=== PATIENT | female | born 1955 | race Caucasian/White ===

== ENCOUNTER 2021-03-02 08:28 | Emergency (ER) | payer MEDICARE, MEDICAID, SELFPAY ==
--- NOTE | ~2021-03-02 | CT_ITS ---
EXAMINATION: CT BRAIN WITHOUT CONTRAST AND CT ABDOMEN AND PELVIS WITH CONTRAST. CLINICAL INFORMATION: Elevated blood pressure, question stroke. Abdominal distention. COMPARISON: CT abdomen and pelvis 07/04/2019 TECHNIQUE: 5 mm thin axial and reformatted 2 mm thin sagittal and coronal images of brain were obtained. Subsequently axial 5 mm thin and reformatted 3 mm thin sagittal and coronal images of abdomen were obtained following IV 85 mL Omnipaque 350. DLP 1323 FINDINGS: Brain: There is no acute intra-axial, extra-axial bleed, masses or midline shift. There is no acute infarction in evolution. There is no edema. The lateral ventricles are symmetrical in size but enlarged. There is diffuse periventricular hypodensity suggestive of chronic small vessel ischemic changes. Bone windows reveal no calvarial abnormality except for 1 cm subtle lucency along the left frontal bone, likely small vascular ramirez. There is left parietal craniotomy change from previous intervention. The left paranasal sinuses are well-aerated and clear. Bilateral mastoid air cells are well-aerated as well. ABDOMEN AND PELVIS: There is minimal right posterior pleural effusion and pleural thickening with underlying atelectatic changes. The heart size is normal. There multiple collateral vessels seen adjacent and within the gastric fundus. The liver is diffusely attenuated, lobulated contour and slightly decreased in size. There is a 9 mm nodule right hepatic lobe segment 7. No additional lesions seen. There is pneumobilia from previous intervention. There is diffuse ascites. The gallbladder is nondistended with mild mural thickening and radiopaque calculi in the dependent segment. The spleen measures 12.4 cm in length. It appears unremarkable. Bilateral adrenal glands are symmetrical and normal. The pancreas is homogeneous echotexture without enlargement or focal lesion. The abdominal aorta is normal caliber except for mild atherosclerosis. The IVC is normal caliber There are significant prominent collateral vessels seen it in the left upper quadrant, at the splenic hilum and posterior the pancreas consistent varicose veins likely secondary to portal venous hypertension. There is scattered stool and gas seen throughout the colon without any significant distention is diffuse mural thickening involving the ascending colon likely nonspecific colitis no pericolic fat stranding seen. There is diffuse peritoneal base which could be secondary to edema and ascites.. The small bowel loops are normal caliber. The appendix is not visualized. There is diffuse colonic diverticulosis without any mural thickening. There is large amount of ascites and diffuse abdominal wall anasarca. The bladder is distended with diffuse bladder wall thickening. No radiopaque calculi seen. Bone windows reveal no lytic or sclerotic process. There are degenerative disc changes L5 L5-S1 disc level. CT/CT abdomen pelvis w con IMPRESSION: No acute intracranial process seen. There is a left parietal craniotomy change from previous intervention. Minimal right pleural effusion. Cirrhosis with diffuse ascites and portal hypertension resulting in large collateral vessels in the fundus of the stomach, adjacent to the fundus and in the splenic hilum and around the tail of the pancreas. Mild splenomegaly There is diffuse ascites and anasarca. There is diffuse mild mural thickening involving and ascending colon without any pericolic fat stranding. Sigmoid colon diverticulosis without mural thickening 9 mm right hepatic lobe lesion question cyst. Cholecystitis with mild gallbladder wall thickening.
--- NOTE | ~2021-03-02 | XR_ITS ---
EXAMINATION: XR SHOULDER, RIGHT CLINICAL INFORMATION: Pain. COMPARISON: None TECHNIQUE: AP external rotation, Grashey, scapular Y, and axillary views of the right shoulder. FINDINGS: There is loss of glenohumeral joint space with inferior periarticular spurring. AC joint spaces are diffuse. There is no or acute fracture, dislocation or lytic process. The soft tissues are normal. XR/XR shoulder RT min 2V IMPRESSION: Degenerative right shoulder changes. No visible acute fracture or dislocation seen.
[2021-03-02 08:32] VITALS: BP 199/111; BP 200/130; PULSE 77; PULSE 82; RESP 16; TEMP 36.9; O2SAT 96; O2SAT 98; BMI 27.5
--- NOTE | 2021-03-02 09:16 | ED_ITS ---
HPI - General Adult General Chief complaint: General Medical <MITA Simental Last Filed: 03/02/21 16:25> Stated complaint: STOMACH EDEMA <MITA Simental Last Filed: 03/02/21 16:25> Time Seen by Provider: 03/02/21 08:44 <MITA Simental Last Filed: 03/02/21 16:25> Source: patient <MITA Simental Last Filed: 03/02/21 16:25> Mode of arrival: ambulatory <MITA Simental Last Filed: 03/02/21 16:25> Limitations: no limitations <MITA Simental Last Filed: 03/02/21 16:25> History of Present Illness HPI narrative: Patient presents to ED for abdominal swelling for 1 week. Patient denies any fever, chills, abdominal pain, shortness of breath, flank pain, or back pain. patient states suprapubic pain. Patient states past medical history of u mbilical hernia and alcoholic cirrhosis. Patient states no PCP or structural rigger for follow up. <MITA Simental Last Filed: 03/02/21 16:25> Related Data Home medications: Previous Rx's Medication Instructions Recorded cefuroxime axetil 250 mg PO Q12H #14 tab 03/02/21 naproxen 500 mg PO BID PRN #20 tab 03/02/21 spironolactone [Aldactone] 50 mg PO DAILY #18 tab 03/02/21 <MITA Simental Last Filed: 03/02/21 16:25> Allergies/adverse reactions: Allergies Allergy/AdvReac Type Severity Reaction Status Date / Time lithium [LITHIUM] Allergy Intermediate UNKNOWN Unverified 07/02/20 15:21 acetaminophen [From TYLENOL] Allergy Unknown UNABLE TO Unverified 07/02/20 15:21 TAKE DUE TO LIVER furosemide [From LASIX] Allergy Unknown UNKOWN Unverified 07/02/20 15:21 pioglitazone [From ACTOS] Allergy Unknown HEAD Unverified 07/02/20 15:21 PRESSURE, TACHYCARDIA, racing heart <MITA Simental Last Filed: 03/02/21 16:25> Review of Systems 2 Review of Systems: Yes all other systems are reviewed and are negative <MITA Simental - Last Filed: 03/02/21 16:25> Constitutional: Constitutional: Reports as per HPI and Reports no additional constitutional complaints <MITA Simental - Last Filed: 03/02/21 16:25> Eyes: Eyes: Reports as per HPI and Reports no additional eye complaints <MITA Simental Last Filed: 03/02/21 16:25> ENT: Reports system reviewed and no additional complaints, except as documented and Reports as per HPI <MITA Simental - Last Filed: 03/02/21 16:25> Cardiovascular: Cardiovascular: Reports as per HPI and Reports no additional cardiovascular complaints <MITA Simental - Last Filed: 03/02/21 16:25> Respiratory: Respiratory: Reports as per HPI and Reports no additional respiratory complaints <MITA Simental Last Filed: 03/02/21 16:25> Gastrointestinal: Gastrointestinal: Reports as per HPI and Reports no additional gastrointestinal complaints <MTIA Simental Last Filed: 03/02 16:25> Comments: Abdominal distension <MITA Simental Last Filed: 03/02/21 16:25> Genitourinary: Genitourinary: Reports no additional female genitourinary complaints and Reports as per HPI <MITA Simental Last Filed: 03/02/21 16:25> Musculoskeletal: Musculoskeletal: Reports no additional musculoskeletal complaints, Reports as per HPI and Reports arthralgias (Right shoulder pain) <MITA Simental - Last Filed: 03/02/21 16:25> Neurologic: Reports system reviewed and no additional complaints, except as documented and Reports as per HPI <IMTA Simental - Last Filed: 03/02/21 16:25> Psychiatric: Psychiatric: Reports no additional psychiatric complaints and Reports as per HPI <MITA Simental Last Filed: 03/02/21 16:25> PMFSH Past Medical History Medical History: Medical History (Updated 03/02/21 @ 14:11 by MITA Simental) Cirrhosis <MITA Simental Last Filed: 03/02/21 16:25> Surgical History: Surgical History (Updated 03/02/21 @ 08:37 by Vianca Alfonso RN) H/O brain surgery <MITA Simental - Last Filed: 03/02/21 16:25> Social History Social History: Social History Advance Directives: No Advance Directives Information Provided: No <MITA Simental - Last Filed: 03/02/21 16:25> Physical Exam Vital Signs: Vital Signs: Last Vital Signs Temp 98.4 F 03/02/21 08:32 Pulse 62 03/02/21 14:23 Resp 18 03/02/21 14:23 BP 165/87 H 03/02/21 14:23 Pulse Ox 97 03/02/21 14:23 Body Mass Index 27.5 <MITA Simental - Last Filed: 03/02/21 16:25> Vital Signs: Last Vital Signs Temp 98.4 F 03/02/21 08:32 Pulse 62 03/02/21 14:23 Resp 18 03/02/21 14:23 BP 165/87 H 03/02/21 14:23 Pulse Ox 97 03/02/21 14:23 Body Mass Index 27.5 <Shamir Lafleur MD - Last Filed: 03/02/21 12:36> Const: General: cooperative, healthy appearing, comfortable, no acute distress, well developed, alert and awake <MITA Simental - Last Filed: 03/02/21 16:25> Orientation/consciousness: patient oriented x3 <MITA Simental - Last Filed: 03/02/21 16:25> HENMT: Head: Yes normal to inspection, Yes No palpable skull fracture present, Yes normocephalic and Yes atraumatic <MITA Simental Last Filed: 03/02/21 16:25> Eyes: General: appearance normal, both eyes and all related structures <MITA Simental - Last Filed: 03/02/21 16:25> Neck: Neck: Yes normal visual inspection, Yes full ROM, Yes no lymphadenopathy, Yes no meningeal signs, Yes trachea midline, Yes supple and No tender <MITA Simental - Last Filed: 03/02/21 16:25> Chest: Chest palpation & inspection: normal inspection of the chest and normal palpation of entire chest wall <MITA Simental Last Filed: 03/02/21 16:25> Resp: Effort & Inspection: normal respiratory effort and able to speak in complete sentences <MITA Simental Last Filed: 03/02/21 16:25> Auscultation: clear to auscultation bilaterally <MITA Simental Last Filed: 03/02/21 16:25> Cardio: Jugular venous distension: no JVD <MITA Simental Last Filed: 03/02/21 16:25> Heart sounds: S1 normal heart sound present and S2 normal heart sound present <MITA Simental Last Filed: 03/02/21 16:25> GI: Other: Positive for large hiatal hernia that is reducible. Abdomen is not firm and negative for venous Telengtasia <MITA Simental Last Filed: 03/02/21 16:25> Inspection: Yes normal to inspection and Yes distended <MITA Simental Last Filed: 03/02/21 16:25> Palpation (GI): Soft to palpation, not firm, nontender, no guarding and not rigid <MITA Simental Last Filed: 03/02/21 16:25> : General: No CVA tenderness and Yes no CVA tenderness <MITA Simental Christine Last Filed: 03/02/21 16:25> Back/Spine/Pelvis: Back: no CVA tenderness, No CVA tenderness and No back tenderness <Juan Manuel Jose, PA Last Filed: 03/02/21 16:25> Skin: General skin exam: no rashes or lesions noted and elasticity normal <MITA Simental Last Filed: 03/02/21 16:25> Neuro: General: patient oriented x3, no meningeal signs and CN's II-XI intact bilaterally <MITA Simental Christine Last Filed: 03/02/21 16:25> Cranial nerves: Yes CN's II-XII intact bilaterally <MITA Simental Last Filed: 03/02/21 16:25> Extrem: Other: Right upper extremity.: Positive for right shoulder tenderness. Negative for shoulder deformity. Mild per x-ray negative for swelling or redness of coolness. Vascular/motor/neuro exam of right upper extremity intact <MITA Simental - Last Filed: 03/02/21 16:25> General: Yes normal to inspection and Yes full ROM <MITA Simental Last Filed: 03/02/21 16:25> Psych: Appearance: grossly normal, well kempt and not disheveled <MITA Simental Last Filed: 03/02/21 16:25> Course Course Course Narrative: Bedside ultrasound was done at bedside and only showed ascitic fluid on right upper/lower quadrant. Patient is not having any abdominal pain or shortness of breath. Not suspecting SBP. Paracentesis not likely indicated. Will speak with attending. Patient is hypertensive. Will do labs EKG and troponin. Patient has no PCP. Unknown why she is allergic to Lasix <MITA Simental Last Filed: 03/02/21 16:25> I agree with history and physical. My exam is soft abdomen some ascites, non tender. No concern for SBP, no need for emergent tap. Will start aldactone and dc home <Shamir Lafleur MD - Last Filed: 03/02/21 12:36> Reevaluation(s) Reevaluation #1: Patient sent for head CT due to elevated blood pressure make sure there is no bleeding or stroke although very unlikely. Patient neuro exam is intact. Patient denies any dizziness or headache. Patient was sent for abdominal CT scan to evaluate for small bowel obstruction. Patient denies any abdominal pain. Patient states mostly shoulder pain. <MITA Simental Last Filed: 03/02/21 16:25> Reevaluation #2: Abdominal CT scan shows large amount of ascites in the right side. Negative for elevated white blood cell count. Patient afebrile non tachy. Patient requesting more pain meds for shoulder <MITA Simental Last Filed: 03/02/21 16:25> Reevaluation #3: Patient UA positive for UTI. Will discharge were the Aldactone and Macrobid. Not suspecting SBP. Patient not having shortness of breath. Paracentesis not indicated. <MITA Simental Last Filed: 03/02/21 16:25> Additional Reevaluation(s): Second troponin came back negative. Shoulder shows degenerate arthritis <MITA Simental Last Filed: 03/02/21 16:25> Medical Decision Making MDM Narrative Medical decision making narrative: Hypertension. UTI. Ascites <MITA Simental - Last Filed: 03/02/21 16:25> Lab Data Result diagrams: : 03/02/21 10:07 03/02/21 10:07 <MITA Simental - Last Filed: 03/02/21 16:25> Labs: Lab Results 03/02/21 03/02/21 03/02/21 Range/Units 10:07 10:07 10:07 WBC 3.2 L (4.8-10.8) X10*3/uL RBC 4.29 (4.20-5.50) X10*6/uL Hgb 13.1 (12.0-16.0) g/dl Hct 38.6 (37-47) % MCV 90.0 (80-98) fL MCH 30.5 (27.0-33.0) pg MCHC 33.9 (31.0-35.0) g/dl RDW 14.6 (11.0-16.0) % Plt Count 84 L (160-400) X10*3/uL MPV 10.6 (9.4-12.3) fL Immature Gran % (Auto) 0.3 (0.0-0.4) % Neut % (Auto) 59.0 (45-73) % Lymph % (Auto) 19.2 L (20-40) % [place] % (Auto) 18.6 H (2-11) % Eos % (Auto) 1.3 (0-4) % Baso % (Auto) 1.6 (0-2) % Lymph # (Auto) 0.6 L (1.2-4.9) X10*3/uL [place] # (Auto) 0.6 (0.1-1.2) X10*3/uL Eos # (Auto) 0.0 (0.0-0.4) X10*3/uL Baso # (Auto) 0.1 (0.0-0.2) X10*3/uL Abs Immat Gran (auto) 0.01 (0.00-0.03) X10*3/uL Absolute Neuts (auto) 1.9 L (2.0-8.3) X10*3/uL Absolute Nucleated RBC 0.000 (0.0-0.012) X10*3/uL Nucleated RBC % (auto) 0.0 (0.0-0.2) /100WBC Smear Tech's Comments VERIFIED PT 14.9 H (10.8-13.0) SEC INR 1.3 H (0.9-1.1) APTT 35.3 (24.1-38.0) SEC Sodium 137 (135-145) mmol/L Potassium 3.6 (3.3-5.1) mmol/L Chloride 105 (96-108) mmol/L Carbon Dioxide 25 (22-29) mmol/L Anion Gap 11 L (12-20) BUN 12 (9-16) mg/dL Creatinine 0.84 (0.5-1.4) mg/dL Estim Creat Clear Calc 57.2 Estimated GFR > 60 Random Glucose 86 (60-115) mg/dL Calcium 7.9 L (8.4-10.2) mg/dL Total Bilirubin 2.8 H (0.0-1.0) mg/dL Direct Bilirubin 1.8 H (0.0-0.5) mg/dL AST 104 H (5-31) U/L ALT 44 H (0-31) U/L Alkaline Phosphatase 100 (39-117) U/L Troponin I High Sens (<3.5-17.0) ng/L Total Protein 5.0 L (6.5-8.0) g/dL Albumin 2.1 L (3.5-5.0) g/dL Lipase 35 (8-78) U/L Urine Color Urine Appearance Urine pH (5.0-8.0) Ur Specific Almond (1.005-1.025) Urine Protein (NEG-TRACE) MG/DL Urine Glucose (UA) (NEG) MG/DL Urine Ketones (NEG) MG/DL Urine Blood (NEG) Urine Nitrite (NEG) Ur Leukocyte Esterase (NEG) Urine RBC (0) /HPF Urine WBC (0-4) /HPF Ur Squamous Epith Cells /LPF Amorphous Sediment /LPF Urine Bacteria /LPF Urine Mucus /LPF 03/02/21 03/02/21 03/02/21 Range/Units 10:07 12:19 13:18 WBC (4.8-10.8) X10*3/uL RBC (4.20-5.50) X10*6/uL Hgb (12.0-16.0) g/dl Hct (37-47) % MCV (80-98) fL MCH (27.0-33.0) pg MCHC (31.0-35.0) g/dl RDW (11.0-16.0) % Plt Count (160-400) X10*3/uL MPV (9.4-12.3) fL Immature Gran % (Auto) (0.0-0.4) % Neut % (Auto) (45-73) % Lymph % (Auto) (20-40) % [place] % (Auto) (2-11) % Eos % (Auto) (0-4) % Baso % (Auto) (0-2) % Lymph # (Auto) (1.2-4.9) X10*3/uL [place] # (Auto) (0.1-1.2) X10*3/uL Eos # (Auto) (0.0-0.4) X10*3/uL Baso # (Auto) (0.0-0.2) X10*3/uL Abs Immat Gran (auto) (0.00-0.03) X10*3/uL Absolute Neuts (auto) (2.0-8.3) X10*3/uL Absolute Nucleated RBC (0.0-0.012) X10*3/uL Nucleated RBC % (auto) (0.0-0.2) /100WBC Smear Tech's Comments PT (10.8-13.0) SEC INR (0.9-1.1) APTT (24.1-38.0) SEC Sodium (135-145) mmol/L Potassium (3.3-5.1) mmol/L Chloride (96-108) mmol/L Carbon Dioxide (22-29) mmol/L Anion Gap (12-20) BUN (9-16) mg/dL Creatinine (0.5-1.4) mg/dL Estim Creat Clear Calc Estimated GFR Random Glucose (60-115) mg/dL Calcium (8.4-10.2) mg/dL Total Bilirubin (0.0-1.0) mg/dL Direct Bilirubin (0.0-0.5) mg/dL AST (5-31) U/L ALT (0-31) U/L Alkaline Phosphatase (39-117) U/L Troponin I High Sens 13.8 16.6 (<3.5-17.0) ng/L Total Protein (6.5-8.0) g/dL Albumin (3.5-5.0) g/dL Lipase (8-78) U/L Urine Color DARK YELLOW Urine Appearance HAZY Urine pH 7.5 (5.0-8.0) Ur Specific Almond 1.020 (1.005-1.025) Urine Protein 2+ H (NEG-TRACE) MG/DL Urine Glucose (UA) NEG (NEG) MG/DL Urine Ketones NEG (NEG) MG/DL Urine Blood TRACE (NEG) Urine Nitrite POS H (NEG) Ur Leukocyte Esterase TRACE H (NEG) Urine RBC 1-4 (0) /HPF Urine WBC 30-49 H (0-4) /HPF Ur Squamous Epith Cells 2+ /LPF Amorphous Sediment 2+ /LPF Urine Bacteria 2+ /LPF Urine Mucus 2+ /LPF <MITA Simental - Last Filed: 03/02/21 16:25> Lab Results 03/02/21 03/02/21 03/02/21 Range/Units 10:07 10:07 10:07 WBC 3.2 L (4.8-10.8) X10*3/uL RBC 4.29 (4.20-5.50) X10*6/uL Hgb 13.1 (12.0-16.0) g/dl Hct 38.6 (37-47) % MCV 90.0 (80-98) fL MCH 30.5 (27.0-33.0) pg MCHC 33.9 (31.0-35.0) g/dl RDW 14.6 (11.0-16.0) % Plt Count 84 L (160-400) X10*3/uL MPV 10.6 (9.4-12.3) fL Immature Gran % (Auto) 0.3 (0.0-0.4) % Neut % (Auto) 59.0 (45-73) % Lymph % (Auto) 19.2 L (20-40) % [place] % (Auto) 18.6 H (2-11) % Eos % (Auto) 1.3 (0-4) % Baso % (Auto) 1.6 (0-2) % Lymph # (Auto) 0.6 L (1.2-4.9) X10*3/uL [place] # (Auto) 0.6 (0.1-1.2) X10*3/uL Eos # (Auto) 0.0 (0.0-0.4) X10*3/uL Baso # (Auto) 0.1 (0.0-0.2) X10*3/uL Abs Immat Gran (auto) 0.01 (0.00-0.03) X10*3/uL Absolute Neuts (auto) 1.9 L (2.0-8.3) X10*3/uL Absolute Nucleated RBC 0.000 (0.0-0.012) X10*3/uL Nucleated RBC % (auto) 0.0 (0.0-0.2) /100WBC Smear Tech's Comments VERIFIED PT 14.9 H (10.8-13.0) SEC INR 1.3 H (0.9-1.1) APTT 35.3 (24.1-38.0) SEC Sodium 137 (135-145) mmol/L Potassium 3.6 (3.3-5.1) mmol/L Chloride 105 (96-108) mmol/L Carbon Dioxide 25 (22-29) mmol/L Anion Gap 11 L (12-20) BUN 12 (9-16) mg/dL Creatinine 0.84 (0.5-1.4) mg/dL Estim Creat Clear Calc 57.2 Estimated GFR > 60 Random Glucose 86 (60-115) mg/dL Calcium 7.9 L (8.4-10.2) mg/dL Total Bilirubin 2.8 H (0.0-1.0) mg/dL Direct Bilirubin 1.8 H (0.0-0.5) mg/dL AST 104 H (5-31) U/L ALT 44 H (0-31) U/L Alkaline Phosphatase 100 (39-117) U/L Troponin I High Sens (<3.5-17.0) ng/L Total Protein 5.0 L (6.5-8.0) g/dL Albumin 2.1 L (3.5-5.0) g/dL Lipase 35 (8-78) U/L Urine Color Urine Appearance Urine pH (5.0-8.0) Ur Specific Almond (1.005-1.025) Urine Protein (NEG-TRACE) MG/DL Urine Glucose (UA) (NEG) MG/DL Urine Ketones (NEG) MG/DL Urine Blood (NEG) Urine Nitrite (NEG) Ur Leukocyte Esterase (NEG) Urine RBC (0) /HPF Urine WBC (0-4) /HPF Ur Squamous Epith Cells /LPF Amorphous Sediment /LPF Urine Bacteria /LPF Urine Mucus /LPF 03/02/21 03/02/21 03/02/21 Range/Units 10:07 12:19 13:18 WBC (4.8-10.8) X10*3/uL RBC (4.20-5.50) X10*6/uL Hgb (12.0-16.0) g/dl Hct (37-47) % MCV (80-98) fL MCH (27.0-33.0) pg MCHC (31.0-35.0) g/dl RDW (11.0-16.0) % Plt Count (160-400) X10*3/uL MPV (9.4-12.3) fL Immature Gran % (Auto) (0.0-0.4) % Neut % (Auto) (45-73) % Lymph % (Auto) (20-40) % [place] % (Auto) (2-11) % Eos % (Auto) (0-4) % Baso % (Auto) (0-2) % Lymph # (Auto) (1.2-4.9) X10*3/uL [place] # (Auto) (0.1-1.2) X10*3/uL Eos # (Auto) (0.0-0.4) X10*3/uL Baso # (Auto) (0.0-0.2) X10*3/uL Abs Immat Gran (auto) (0.00-0.03) X10*3/uL Absolute Neuts (auto) (2.0-8.3) X10*3/uL Absolute Nucleated RBC (0.0-0.012) X10*3/uL Nucleated RBC % (auto) (0.0-0.2) /100WBC Smear Tech's Comments PT (10.8-13.0) SEC INR (0.9-1.1) APTT (24.1-38.0) SEC Sodium (135-145) mmol/L Potassium (3.3-5.1) mmol/L Chloride (96-108) mmol/L Carbon Dioxide (22-29) mmol/L Anion Gap (12-20) BUN (9-16) mg/dL Creatinine (0.5-1.4) mg/dL Estim Creat Clear Calc Estimated GFR Random Glucose (60-115) mg/dL Calcium (8.4-10.2) mg/dL Total Bilirubin (0.0-1.0) mg/dL Direct Bilirubin (0.0-0.5) mg/dL AST (5-31) U/L ALT (0-31) U/L Alkaline Phosphatase (39-117) U/L Troponin I High Sens 13.8 16.6 (<3.5-17.0) ng/L Total Protein (6.5-8.0) g/dL Albumin (3.5-5.0) g/dL Lipase (8-78) U/L Urine Color DARK YELLOW Urine Appearance HAZY Urine pH 7.5 (5.0-8.0) Ur Specific [place] 1.020 (1.005-1.025) Urine Protein 2+ H (NEG-TRACE) MG/DL Urine Glucose (UA) NEG (NEG) MG/DL Urine Ketones NEG (NEG) MG/DL Urine Blood TRACE (NEG) Urine Nitrite POS H (NEG) Ur Leukocyte Esterase TRACE H (NEG) Urine RBC 1-4 (0) /HPF Urine WBC 30-49 H (0-4) /HPF Ur Squamous Epith Cells 2+ /LPF Amorphous Sediment 2+ /LPF Urine Bacteria 2+ /LPF Urine Mucus 2+ /LPF <Shamir Lafleur MD - Last Filed: 03/02/21 12:36> ECG Data Interpretation: Normal sinus rhythm. Ventricular rate 72. Peer interval 190. QRS 94. QTC 473. Negative STEMI <MITA Simental - Last Filed: 03/02/21 16:25> Discharge Plan Discharge Clinical Impression: Abdominal ascites, Acute UTI <MITA Simental - Last Filed: 03/02/21 16:25> Patient Disposition: Home, Self-Care <MITA Simental - Last Filed: 03/02/21 16:25> Instructions: Urinary Tract Infection in Women (ED), Ascites (ED) <MITA Simental - Last Filed: 03/02/21 16:25> Additional Instructions: Return to the ED immediately for abdominal pain, fever, chills, dysuria, swelling of legs, chest pain, shortness of breath, headache, or any other concerning symptoms. <MITA Simental - Last Filed: 03/02/21 16:25> Prescriptions: New spironolactone [Aldactone] 50 mg tablet 50 mg PO DAILY Qty: 18 RF: 0 naproxen 500 mg tablet 500 mg PO BID PRN (Reason: pain) Qty: 20 RF: 0 cefuroxime axetil 250 mg tablet 250 mg PO Q12H Qty: 14 RF: 0 <MITA Simental Last Filed: 03/02/21 16:25> Referrals: Kumar Vega MD [Physician] - 2 days (Alcoholic cirrhosis, HTN, Hep C, CHF) Kurt Murrell [Physician] - 2 days (ALcoholic cirrohosis. ) <MITA Simental - Last Filed: 03/02/21 16:25> Interventions: ED Discharge Assessment Last Done: 03/02/21 14:49 <MITA Simental - Last Filed: 03/02/21 16:25> Discharge Date/Time: 03/02/21 15:10 <MITA Simental - Last Filed: 03/02/21 16:25> Print Language: Portuguese <MITA Simental - Last Filed: 03/02/21 16:25>
--- NOTE | 2021-03-02 09:17 | ECG_ITS ---
Test Reason : SOB Blood Pressure : / mmHG Vent. Rate : 072 BPM Atrial Rate : 072 BPM P-R Int : 190 ms QRS Dur : 094 ms QT Int : 432 ms P-R-T Axes : 054 -07 -17 degrees QTc Int : 473 ms Normal sinus rhythm Nonspecific ST abnormality Abnormal ECG When compared with ECG of 01-DEC-2019 08:11, QRS axis Shifted left Referred By: Juan Manuel Garcia Electronically Signed By:MERE MEDRANO MD
[2021-03-02 10:03] VITALS: BP 183/90
[2021-03-02] MEDS: Ketorolac Tromethamine 30 MG/ML VIAL IVPUSH (10:11)
[2021-03-02 10:12] LABS: Basophils Absolute Auto 0.1 X10*3/uL (0.0-0.2); Basophils Percent Auto 1.6 % (0-2); Eosinophils Percent Auto 1.3 % (0-4); Hematocrit 38.6 % (37-47); Hemoglobin 13.1 g/dl (12.0-16.0); Imm Gran Abs Auto 0.01 X10*3/uL (0.00-0.03); Imm Gran Pct Auto 0.3 % (0.0-0.4); Lymphocytes Absolute Auto 0.6 X10*3/uL (1.2-4.9); Lymphocytes Percent Auto 19.2 % (20-40); MANUAL DIFF FLAG SCAN; Mean Corpuscular HGB Conc 33.9 g/dl (31.0-35.0); Mean Corpuscular Hemoglobin 30.5 pg (27.0-33.0); Mean Platelet Volume 10.6 fL (9.4-12.3); Monocytes Absolute Auto 0.6 X10*3/uL (0.1-1.2); Monocytes Percent Auto 18.6 % (2-11); Neutrophils Absolute Auto 1.9 X10*3/uL (2.0-8.3); Red Blood Count 4.29 X10*6/uL (4.20-5.50); Red Cell Distribution Width 14.6 % (11.0-16.0); SCAN SMEAR FLAG 1; White Blood Count 3.2 X10*3/uL (4.8-10.8)
[2021-03-02 10:13] LABS: Platelet Count 84 X10*3/uL (160-400)
[2021-03-02 10:20] LABS: INTERNATIONAL NORM RATIO 1.3 (0.9-1.1); Prothrombin Time 14.9 SEC (10.8-13.0)
[2021-03-02 10:23] LABS: Partial Thromboplastin Time 35.3 SEC (24.1-38.0)
[2021-03-02 10:24] VITALS: BP 195/102; PULSE 75
[2021-03-02] MEDS: cloNIDine HCL 0.2 MG TABLET PO (10:24)
[2021-03-02 10:40] LABS: SLIDE REVIEW VERIFIED
[2021-03-02 10:45] LABS: Alanine Aminotransferase 44 U/L (0-31); Albumin Level 2.1 g/dL (3.5-5.0); Alkaline Phosphatase 100 U/L (39-117); Anion Gap 11 (12-20); Aspartate Amino Transferase 104 U/L (5-31); Bilirubin Direct 1.8 mg/dL (0.0-0.5); Bilirubin Total 2.8 mg/dL (0.0-1.0); Blood Urea Nitrogen 12 mg/dL (9-16); Calcium 7.9 mg/dL (8.4-10.2); Carbon Dioxide 25 mmol/L (22-29); Chloride 105 mmol/L (96-108); Creatinine Clr Calc Pharmacy 57.2; Estimated Glomerular Filt Rate > 60; Glucose Random 86 mg/dL (60-115); Lipase 35 U/L (8-78); Potassium 3.6 mmol/L (3.3-5.1); Sodium 137 mmol/L (135-145)
[2021-03-02 10:46] LABS: Troponin-I High Sensitivity 13.8 ng/L (<3.5-17.0)
[2021-03-02] MEDS: iohexoL 350 MG/ML 100 ML INFUS..BTL IV (11:46)
[2021-03-02 12:19] VITALS: BP 168/91
[2021-03-02] MEDS: oxyCODONE HCl Immed Release 5 MG TABLET PO (12:23)
[2021-03-02 12:32] LABS: Glucose Urine UA NEG (NEG); Leukocyte Esterase Urine TRACE (NEG); Nitrite Urine POS (NEG); PH 7.5 (5.0-8.0); UACC Culture Trigger YES; Urine Blood TRACE (NEG); Urine Ketones NEG (NEG); Urine Protein 2+ MG/DL (NEG-TRACE)
[2021-03-02 12:33] LABS: Appearance Urine HAZY; Color Urine DARK YELLOW
[2021-03-02 12:45] LABS: Amorphous Sediment Urine 2+ /LPF; Bacteria Urine 2+ /LPF; Mucus Urine 2+ /LPF; Squamous Epithelial Cell Urine 2+ /LPF; WBC Urine 30-49 /HPF (0-4)
[2021-03-02 13:51] LABS: Troponin-I High Sensitivity 16.6 ng/L (<3.5-17.0)
[2021-03-02 14:23] VITALS: BP 165/87; PULSE 62; RESP 18; O2SAT 97
== END 2021-03-02 15:10 | disposition home or self-care (01) ==
PROVIDERS: Physician Assistant; Emergency Provider Emergency Medicine
DX: R18.8 Other ascites (principal); N39.0 Urinary tract infection, site not specified; M25.511 Pain in right shoulder; M19.011 Primary osteoarthritis, right shoulder; K44.9 Diaphragmatic hernia without obstruction or gangrene; K70.30 Alcoholic cirrhosis of liver without ascites; I10 Essential (primary) hypertension
CPT/HCPCS: 36415; 70450; 73030; 74177; 80053; 80076; 81001; 81003; 82248; 83690; 84484; 85025; 85610; 85730; 87086; 93005; 96374; 99284; J1885; Q9967

== ENCOUNTER 2021-05-20 18:14 | Emergency (ER) | payer MEDICARE, MEDICAID, SELFPAY ==
--- NOTE | ~2021-05-20 | CT_ITS ---
EXAMINATION: CT HEAD WITHOUT CONTRAST CLINICAL INFORMATION: Fall. EtOH. COMPARISON: Head CT March 02, 2021 TECHNIQUE: Contiguous axial imaging was performed from the skull base to vertex without intravenous administration of contrast. This CT examination was performed using dose optimization techniques as appropriate, variously including the following: *Automated exposure control *Adjustment of mA and/or kV according to patient size (this includes techniques or standardized protocols for targeted exams where dose is matched to indication/reason for exam; i.e. extremities or head) *Use of iterative reconstruction technique DLP: 674 mGy-cm FINDINGS: There is no evidence of acute intracranial hemorrhage or territorial infarction. No abnormal mass effect or midline shift is appreciated. Mejia-white differentiation is well preserved. No extra-axial fluid collections. The ventricular system and cortical sulci are prominent, consistent with age-appropriate volume loss. There are areas of low density in the periventricular and subcortical white matter, most consistent with sequelae of microvascular ischemic change. No acute osseous fracture. Surgical changes from prior left parietal craniotomy. There are calcifications of the cavernous internal carotid arteries. The visualized paranasal sinuses and mastoid air cells are well aerated. CT/CT head/brain wo con IMPRESSION: Chronic microvascular ischemic changes with no CT evidence of acute intracranial abnormality.
[2021-05-20 18:19] VITALS: BP 132/65; BP 163/84; PULSE 64; PULSE 65; RESP 18; TEMP 36.4; O2SAT 94; BMI 29.0
--- NOTE | 2021-05-20 19:51 | ED_ITS ---
HPI - Alcohol General Chief Complaint: ETOH/Substance Use Stated Complaint: ETOH Time Seen by Provider: 05/20/21 19:22 Source: EMS Mode of arrival: EMS History of Present Illness HPI narrative: Patient is brought to the emergency room for alcohol intoxication. Patient reports initially that she fell, then she said that she did not fall. Patient states she has no pain anywhere. Patient is intoxicated, states she feels well but feels sleepy. Patient denies loss of consciousness MD complaint: alcohol intoxication Related Data Previous Rx's Medication Instructions Recorded cefuroxime axetil 250 mg tablet 250 mg PO Q12H #14 tab 03/02/21 naproxen 500 mg tablet 500 mg PO BID PRN #20 tab 03/02/21 spironolactone 50 mg tablet 50 mg PO DAILY #18 tab 03/02/21 (Aldactone) Allergies Allergy/AdvReac Type Severity Reaction Status Date / Time lithium [LITHIUM] Allergy Intermediate UNKNOWN Unverified 07/02/20 15:21 acetaminophen [From TYLENOL] Allergy Unknown UNABLE TO Unverified 07/02/20 15:21 TAKE DUE TO LIVER furosemide [From LASIX] Allergy Unknown UNKOWN Unverified 07/02/20 15:21 pioglitazone [From ACTOS] Allergy Unknown HEAD Unverified 07/02/20 15:21 PRESSURE, TACHYCARDIA, racing heart Review of Systems Review of Systems: Constitutional : No Weight loss, No Fever, No Chills, No Night Sweats, No Fatigue, No Malaise ENT/Mouth : No Hearing loss, No Ear Pain, No Nasal Congestion, No Sinus Pain, No Hoarseness, No sore throat, No Rhinorrhea, No Swallowing Difficulty Eyes: No Eye Pain, No Swelling, No Redness, No Foreign Body, No Discharge, No Vision Changes Cardiovascular : No Chest Pain, No SOB, No Dyspnea on Exertion, No Orthopnea, No Edema, No Palpitations Respiratory : No Cough, No Sputum, No Wheezing, No Smoke Exposure, No Dyspnea Gastrointestinal : No Nausea, No Vomiting, No Diarrhea, No Constipation, No abdominal Pain, No Hematochezia, No Melena Genitourinary : no irregular bleeding, No Dysuria, No Urinary Frequency, No Hematuria, No Urinary Incontinence, No Urgency, No Flank Pain, No Urinary Flow Changes, No Hesitancy Musculoskeletal : No joint pain, No Myalgias, No Joint Swelling Skin : No Skin Lesions, No rash Neuro : No Weakness, No Numbness, No Paresthesias, denies loss of consciousness, no headache Psych : No Anxiety/Panic, No Depression, No SI/HI/AH/VH, No Social Issues, Heme/Lymph: No Bruising, No Bleeding,No Lymphadenopathy Endocrine : No Polyuria, No Polydipsia, No Temperature Intolerance [facility] Past Medical History Medical History Cirrhosis Surgical History H/O brain surgery Social History Social History Alcohol intake: current Alcohol intake frequency: 3 or more drinks per day Patient Tobacco Use Status: Current everyday Tobacco user Smoked in Last 30 Days: Yes Use of substances other than those prescribed or required for medical reasons: Refusing to respond Advance Directives: No Advance Directives Information Provided: No Physical Exam Vital Signs: Vital Signs: Last Vital Signs Temp 97.6 F 05/20/21 22:47 Pulse 69 05/20/21 22:47 Resp 18 05/20/21 22:47 BP 145/76 H 05/20/21 22:47 Pulse Ox 96 05/20/21 22:47 Body Mass Index 29.0 Const: Other: Appearance: Alert. Oriented X3. No acute distress. Somnolent but easily arousable, is intoxicated, calm and cooperative Eyes: Pupils equal, round and reactive to light. ENT: Pharynx normal. Neck: Normal inspection. Neck supple. No lymph nodes noted. No crepitus CVS: Normal heart rate and rhythm. Pulses normal. Normal S1 and S2 Respiratory: No respiratory distress. Breath sounds normal. No Wheezing. No rales Abdomen: Soft, slightly distended but not painful on deep palpation Skin: Skin warm and dry. Normal skin color. Normal skin turgor. Extremities: No lower extremity edema. No lower extremity edema. No Lacerations. No Rash Neuro: Oriented X 3. No motor deficit. No sensory deficit. Moving all extermities. No slurred speech. Course Course Course Narrative: Patient remained stable, sleepy but easily arousable,, cooperative. Metabolized to freedom, then discharge home. Sign-out given to Dr. Soares [facility] - Alcohol Imaging Data CT scan - head: Radiologist's impression: There is no evidence of acute intracranial hemorrhage or territorial infarction.? No abnormal mass effect or midline shift is appreciated. Mejia-white differentiation is well preserved.? No extra-axial fluid collections. The ventricular system and cortical sulci are prominent, consistent with age-appropriate volume loss.? There are areas of low density in the periventricular and subcortical white matter, most consistent with sequelae of microvascular ischemic change.? No acute osseous fracture. Surgical changes from prior left parietal craniotomy. There are calcifications of the cavernous internal carotid arteries.? The visualized paranasal sinuses and mastoid air cells are well aerated.? CT/CT head/brain wo con IMPRESSION: Chronic microvascular ischemic changes with no CT evidence of acute intracranial abnormality. Discharge Plan Discharge Clinical Impression: Alcoholic intoxication Patient Disposition: Home, Self-Care Instructions: Alcohol Intoxication (ED) Additional Instructions: Please follow-up with your primary care physician tomorrow. If you have any worsening or new symptoms, please return to the emergency room or call 911 Prescriptions: No Action spironolactone [Aldactone] 50 mg tablet 50 mg PO DAILY Qty: 18 RF: 0 naproxen 500 mg tablet 500 mg PO BID PRN (Reason: pain) Qty: 20 RF: 0 cefuroxime axetil 250 mg tablet 250 mg PO Q12H Qty: 14 RF: 0
[2021-05-20 20:00] VITALS: RESP 18
--- NOTE | 2021-05-20 22:36 | PC.NURSE ---
per patient okay to call daughter lorenzo in chart for ride home.
[2021-05-20 22:47] VITALS: BP 145/76; PULSE 69; RESP 18; TEMP 36.4; O2SAT 96
[2021-05-21 04:19] VITALS: RESP 16
[2021-05-21 06:29] VITALS: RESP 16
--- NOTE | 2021-05-21 07:08 | PC.NURSE ---
Daughter Vianca contact [phone] Pt remains asleep at this time
--- NOTE | 2021-05-21 10:09 | PC.NURSE ---
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
== END 2021-05-21 10:11 | disposition home or self-care (01) ==
PROVIDERS: Emergency Provider Emergency Medicine
DX: S09.90XA Unspecified injury of head, initial encounter (principal); F10.129 Alcohol abuse with intoxication, unspecified; Y90.8 Blood alcohol level of 240 mg/100 ml or more; G44.309 Post-traumatic headache, unspecified, not intractable; F17.200 Nicotine dependence, unspecified, uncomplicated; Z71.41 Alcohol abuse counseling and surveillance of alcoholic; Z71.6 Tobacco abuse counseling; Z79.899 Other long term (current) drug therapy; W01.0XXA Fall on same level from slipping, tripping and stumbling without subsequent striking against object, initial encounter; Y93.9 Activity, unspecified; Y92.9 Unspecified place or not applicable; Y99.9 Unspecified external cause status
CPT/HCPCS: 70450; 99285

== ENCOUNTER 2022-06-10 14:21 | Inpatient (IN) | payer MEDICARE, MEDICAID, SELFPAY ==
--- NOTE | ~2022-06-10 | XR_ITS ---
EXAMINATION: XR CHEST CLINICAL INFORMATION: Versus of breath and abdominal ascites COMPARISON: Chest x-ray 12/01/2019 TECHNIQUE: Frontal view of the chest was obtained. FINDINGS: Elevation of the right hemidiaphragm. Streaky bibasilar opacities consistent with mild atelectasis. Slightly indistinct right costophrenic sulcus equivocal for small right pleural effusion. Left lung is clear. No pneumothorax. Normal cardiac silhouette. Slight prominent central pulmonary arteries, unchanged. No evidence of pulmonary edema. No acute osseous injury. XR/XR chest 1V IMPRESSION: 1. Elevation right hemidiaphragm with mild right basilar atelectasis and possible small right basilar pleural effusion.
--- NOTE | ~2022-06-10 | CT_ITS ---
EXAMINATION: CT ABDOMEN AND PELVIS WITH CONTRAST CLINICAL INFORMATION: Abdominal fullness, history of ascites. COMPARISON: CT scan of the abdomen and pelvis dated 03/02/2021 TECHNIQUE: Multidetector volumetric images were obtained from the superior aspect of the liver through the pubic symphysis following administration 85 mL of Omnipaque 350 intravenous contrast. Sagittal and coronal reformatted images were obtained on the technologist's workstation. Oral contrast: No This CT examination was performed using dose optimization techniques as appropriate, variously including the following: *Automated exposure control *Adjustment of mA and/or kV according to patient size (this includes techniques or standardized protocols for targeted exams where dose is matched to indication/reason for exam; i.e. extremities or head) *Use of iterative reconstruction technique DLP: 1043 mGy-cm FINDINGS: LUNG BASES: Mild bibasilar atelectasis/scarring, right greater than left. No pericardial effusion. LIVER, GALLBLADDER, AND BILIARY TREE: Hepatic cirrhosis without focal parenchymal abnormality. Small cyst centrally in the right hepatic lobe measuring 1.1 cm densities image 12, series 3). Mild pneumobilia. The gallbladder contains small dependent gallstones and a without surrounding abnormality. PANCREAS: Unremarkable. SPLEEN: Unremarkable. ADRENAL GLANDS: Unremarkable. KIDNEYS AND URETERS: No hydroureteronephrosis or nephrolithiasis bilaterally. Small cyst medially in the upper pole the left kidney measuring 0.7 cm (image 110, series 6). BLADDER: Unremarkable. GASTROINTESTINAL TRACT: Prominent varices at the level the gastric cardia and gastroesophageal junction. No other significant gastric abnormality. Small bowel loops are displaced anteriorly and centrally from the ascites. Moderate to severe diverticulosis is seen in the descending and sigmoid colon. PERITONEUM: Large ascites ABDOMINAL WALL: Generalized anasarca. LYMPH NODES: No lymphadenopathy. VASCULAR: Sequelae of portal hypertension including upper abdominal and esophageal varices. PELVIC VISCERA: Unremarkable. OSSEOUS STRUCTURES: Multilevel degenerative changes in the thoracolumbar spine with moderate to severe degenerative disc disease at L5-S1. CT/CT abdomen pelvis w con IMPRESSION: 1. Hepatic cirrhosis with large peritoneal ascites representing significant interval increase from the previous study. Sequelae of portal hypertension as detailed above. 2. Pneumobilia and cholelithiasis. Small central hepatic cyst demonstrates benign features without significant interval change. 3. Moderate to severe distal colonic diverticulosis without evidence for acute diverticulitis. Fleischner guidelines were followed.
--- NOTE | ~2022-06-10 | US_ITS ---
EXAMINATION: US-GUIDED PARACENTESIS CLINICAL INFORMATION: Ascites with abdominal discomfort. COMPARISON: CT scan of 06/10/2022 TECHNIQUE: Ultrasound-guided paracentesis performed in the department. FINDINGS: Informed consent was obtained from the patient prior to the procedure. During this process, the procedure and potential alternatives were explained, along with the intended outcome and benefits. The risks of the procedure, as well as the risk of not doing the procedure, were discussed. The patient was given the opportunity to ask questions regarding the procedure and appeared competent to make medical decisions. A signed consent form which documents this discussion was placed in the medical record. Using sterile technique and ultrasound guidance, a 5-Italian Yueh needle was directed into the fluid within the right upper abdomen. A total of 3.7 L of clear straw-colored fluid was removed. Patient tolerated the procedure without difficulty. US/US paracentesis abd w/image IMPRESSION: Ultrasound-guided paracentesis with removal of 3.7 L of fluid.
[2022-06-10 14:56] VITALS: BP 162/93; PULSE 91; RESP 17; TEMP 36.1; O2SAT 92; BMI 25.6
--- NOTE | 2022-06-10 15:02 | ECG_ITS ---
Test Reason : CP Blood Pressure : / mmHG Vent. Rate : 092 BPM Atrial Rate : 092 BPM P-R Int : 176 ms QRS Dur : 076 ms QT Int : 382 ms P-R-T Axes : 031 -34 -24 degrees QTc Int : 472 ms Normal sinus rhythm Left axis deviation Low voltage QRS Nonspecific T wave abnormality Prolonged QT Abnormal ECG When compared with ECG of 02-MAR-2021 09:24, Nonspecific T wave abnormality, worse in Anterior leads Referred By: Alexia Rodas Electronically Signed By:SOCORRO WU
[2022-06-10] MEDS: Ondansetron ODT 4 MG TAB.RAPDIS TRANSLINGU (15:10)
[2022-06-10 15:24] LABS: MANUAL DIFF FLAG NO
[2022-06-10 15:41] LABS: Basophils Absolute Auto 0.1 X10*3/uL (0.0-0.2); Basophils Percent Auto 0.9 % (0-2); Eosinophils Percent Auto 0.6 % (0-4); Hematocrit 34.3 % (37.0-47.0); Hemoglobin 11.3 g/dl (12.0-16.0); Imm Gran Abs Auto 0.05 X10*3/uL (0.00-0.03); Imm Gran Pct Auto 0.9 % (0.0-0.4); Lymphocytes Absolute Auto 1.2 X10*3/uL (1.2-4.9); Lymphocytes Percent Auto 21.5 % (20-40); Mean Corpuscular HGB Conc 32.9 g/dl (31.0-35.0); Mean Corpuscular Hemoglobin 29.1 pg (27.0-33.0); Mean Corpuscular Volume 88.4 fL (80.0-98.0); Mean Platelet Volume 9.9 fL (9.4-12.3); Monocytes Absolute Auto 0.5 X10*3/uL (0.1-1.2); Monocytes Percent Auto 9.5 % (2-11); Neutrophils Absolute Auto 3.6 x10*3/uL (2.0-8.3); Neutrophils Percent Auto 66.6 % (45-73); Platelet Count 118 X10*3/uL (160-400); Red Blood Count 3.88 X10*6/uL (4.20-5.50); Red Cell Distribution Width 15.6 % (11.0-16.0); White Blood Count 5.5 X10*3/uL (4.8-10.8)
[2022-06-10 15:42] LABS: Alanine Aminotransferase 11 U/L (0-31); Albumin Level 2.1 g/dL (3.5-5.0); Alkaline Phosphatase 54 U/L (39-117); Anion Gap 14 (12-20); Aspartate Amino Transferase 50 U/L (5-31); Bilirubin Total 2.9 mg/dL (0.0-1.0); Blood Urea Nitrogen 8 mg/dL (9-16); Calcium 7.6 mg/dL (8.4-10.2); Carbon Dioxide 23 mmol/L (22-29); Chloride 108 mmol/L (96-108); Creatinine Clr Calc Pharmacy 54.2; Estimated Glomerular Filt Rate > 60; Glucose Random 83 mg/dL (60-115); Lipase 27 U/L (8-78); Potassium 3.5 mmol/L (3.3-5.1); Sodium 141 mmol/L (135-145); Total Protein 5.8 g/dL (6.5-8.0)
[2022-06-10 15:47] LABS: Ethanol 43 mg/dL; Magnesium 1.6 mg/dL (1.6-2.6)
[2022-06-10 16:02] LABS: B Type Natriuretic Peptide 223 pg/mL (<100)
[2022-06-10] MEDS: Morphine Sulfate 4 MG/ML CARTRIDGE IVPUSH ×2 (16:16→21:18)
[2022-06-10] MEDS: Albumin Human 25 % 100 ML IV ×3 (16:18→20:57)
[2022-06-10 16:43] LABS: INTERNATIONAL NORM RATIO 1.2 (0.9-1.1); Prothrombin Time 13.3 SEC (10.0-13.1)
[2022-06-10 16:46] LABS: Partial Thromboplastin Time 32.9 SEC (26.0-36.4)
[2022-06-10] MEDS: iohexoL 350 MG/ML 100 ML INFUS..BTL IV (16:50)
--- NOTE | 2022-06-10 17:10 | ED.ABDPAIN ---
HPI - Abdominal Pain General Chief Complaint: General Medical Stated Complaint: needs drain/heart problems Time Seen by Provider: 06/10/22 15:20 Source: patient Mode of arrival: ambulatory Limitations: no limitations History of Present Illness HPI narrative: 66-year-old female with a past medical history of alcoholic liver cirrhosis/ascites who has required paracentesis in the past last paracentesis was 03/02/2021 here in the emergency department presenting to the ED with complaints of abdominal distension reports ?I need my fluid drained from my abdomen?. She also reports bilateral lower extremity edema. She also reports a rash to her groin area. She reports this all started approximately 3 days ago. She reports that she drank a few beers this morning. She reports when she lays flat she feels short of breath/dry cough. She also reports diarrhea. She denies any fevers, chills, dizziness, headaches, neck pain/stiffness, trouble swallowing, dyspnea on exertion, palpitations, paresthesias, nausea/vomiting, constipation, black or bloody stools, dysuria, hematuria, abnormal vaginal discharge, thoughts of STDs, recent travel or sick contacts, calf tenderness or any other symptoms complaints or concerns at this time. MD elicited complaint: abdominal pain Pertinent past history: other (Alcoholic liver cirrhosis/ascites) Onset (ago): day(s) (Past few days worse today) Pain Consistency: constant Location: diffuse Severity: severe Quality: fullness Radiation: none Migration to: no migration Exacerbating factors: movement Relieving factors: nothing Associated symptoms: other (Shortness of breath) Related Data Allergies Allergy/AdvReac Type Severity Reaction Status Date / Time lithium [LITHIUM] Allergy Intermediate UNKNOWN Unverified 07/02/20 15:21 acetaminophen [From TYLENOL] Allergy Unknown UNABLE TO Unverified 07/02/20 15:21 TAKE DUE TO LIVER pioglitazone [From ACTOS] Allergy Unknown HEAD Unverified 07/02/20 15:21 PRESSURE, TACHYCARDIA, racing heart Review of Systems Review of Systems Constitutional : No Fever, No Chills, No Night Sweats, No Fatigue, No Malaise Cardiovascular : No Chest Pain, + SOB Respiratory : + Cough, No Sputum, No Wheezing, + Dyspnea Gastrointestinal : No Nausea, No Vomiting, No Diarrhea, + abdominal Pain/fullness, No Hematochezia, No Melena Genitourinary : No irregular bleeding, No Dysuria, No Urinary Frequency, No Hematuria,No Urinary Incontinence, No Urgency, No Flank Pain Musculoskeletal : No joint pain, No Myalgias, No Joint Swelling Skin : No Skin Lesions, No rash Neuro : No Weakness, No Numbness, No Paresthesias, No Loss of Consciousness, No Dizziness, No Headache Heme/Lymph: No Lymphadenopathy Endocrine : No Temperature Intolerance Yes all other systems are reviewed and are negative [facility] Past Medical History Attestation statement: The following information was validated with the patient. Source: old records reviewed and nursing notes reviewed Medical History Cirrhosis Surgical History H/O brain surgery Social History Social History Alcohol intake: current Alcohol intake frequency: 3 or more drinks per day Patient Tobacco Use Status: Current everyday Tobacco user Advance Directives: No Advance Directives Information Provided: No Physical Exam ED Vital Signs: Vital Signs - 24 hr 06/10/22 14:56 06/10/22 17:53 06/10/22 19:27 Temperature 96.9 F 98.1 F Pulse Rate 91 98 Respiratory Rate 17 20 15 Blood Pressure 162/93 H 164/100 H Pulse Oximetry 92 93 Oxygen Delivery Method Room Air Nasal Cannula Oxygen Flow Rate 3 BMI result Body Mass Index 25.6 vital signs have been reviewed as normal and appeared to be correct. Blood pressure 162/93. Heart rate normal. Respiration rate normal. Temperature normal. Oxygen saturation 93% on 3L NC oxygen. Appearance: Alert. Oriented X3. No acute distress. Head: Normal external exam. Normocephalic. Atraumatic. Eyes: PERRLA. EOMI. Conjunctiva and sclera normal. Eyelids normal. ENT: Pharynx normal. Uvula midline. Moist mucous membranes. No lesions/ulcerations or masses noted on the tongue. Normal voice. No trismus noted. No drooling noted. No muffled voice noted. Neck: Normal inspection. Neck supple. FROM. No adenopathy. Thyroid Normal. No meningeal signs. No neck mass noted. CVS: Normal heart rate and rhythm. Heart sound normal. Pulses normal throughout. No murmurs/rales/gallops. Respiratory: No respiratory distress. Painless inspiration. Breath sounds normal. No wheezes/rales/rhonchi noted. Chest nontender. No crepitus is noted. No accessory muscle usage noted or decreased air movement noted. No signs of trauma. Abdomen: Firm and distended with tenderness palpation consistent with ascites. No visible injury noted. Back: No CVA tenderness. Full range of motion noted. Nontender. Patient neuro intact bilaterally and distally on all 4 extremities. Patient's reflexes intact bilaterally and distally on all 4 extremities. No rashes/lesion/induration/fluctuance or signs of infection noted. Skin: Skin warm and dry. Normal skin color. Normal skin turgor. To the groin area patient has erythema consistent with candidiasis. No additional rashes/lesions/lacerations noted. Extremities: No lower extremity edema. No calf tenderness is noted. Extremities exhibit normal range of motion and nontender. Neuro: Oriented X 3. No motor deficit. No sensory deficit. Reflexes normal. Normal steady gait. No focal neuro deficits noted. CN's II-XII intact bilaterally? Vascular: + radial pulses/+ 2 distal pedal pulses/+2 dorsalis pedis b/l. Normal cap refill. No cyanosis noted to upper extremity nails and lower extremity toes nails. Course Course Course Narrative: 15:30pm - 66-year-old female with a past medical history of alcoholic liver cirrhosis/ascites who has required paracentesis in the past last paracentesis was 03/02/2021 here in the emergency department presenting to the ED with complaints of abdominal distension reports ?I need my fluid drained from my abdomen?. She also reports orthopnea/dry cough and bilateral lower extremity edema. She also reports a rash to her groin area. She reports this all started approximately 3 days ago. She reports that she drank a few beers this morning. She also reports diarrhea. Plan: Labs, EKG, CT scan of abdomen pelvis and re-evaluate Reevaluation(s) Reevaluation #1: - labs return patient with an H&H of 11.3/34.3. - Platelet count 118. - BUN 8. - calcium 7.6. - total bilirubin 2.9 which is similar compared to prior. - AST 50 which is similar compared to prior. - BNP 223. - Total protein 5.8. - Albumin 2.1. - ethanol level 43. - otherwise all other labs are within normal limits. - CT scan abdomen pelvis with IV contrast revealed hepatic cirrhosis with large peritoneal ascites or presenting significant interval increase from previous study. Portal hypotension. Pneumobilia and cholelithiasis. Small central hepatic cyst demonstrates benign features without significant interval change. 3. Moderate to severe distal colonic diverticulosis without evidence for acute diverticulitis. Otherwise no other acute processes noted. - it appears that patient had pneumobilia in the past on her last CT scan on 03/02/2021. - Consulting with Dr. Graham about pneumobilia - patient now status post paracentesis. Patient tolerated procedure well. No complications. 13 L (13,000ml's of yellow thin fluid removed) - patient was given 50 g of IV albumin. - patient is still requiring nasal cannula oxygen her oxygen is dropping from 88 through 90% on room air despite taking 13 L off by paracentesis and patient is not on oxygen at home therefore will plan to admit. Discussing this case with Dr. Wood. Time: 19:44 Reevaluation #2: - patient is still requiring oxygen will obtain a chest x-ray. Blood cultures, lactic acid and provide IV Zosyn for prophylaxis. Although she does not have an elevated white blood cell count and her cell count negative/WNL. I do not believe this is SBP. - Consulted with Dr. Graham about pneumobilia and she reported that at this time this is not appear acute especially if she has been having this since 2020. - will also give another 25 g of IV albumin plan will be to admit to Dr. Wood. Patient understands agrees with this plan. Time: 20:07 [facility] - Abdominal Pain Medical Records Attestation: I reviewed the patient's medical records. Lab Data Attestation: I reviewed the patient's lab results. Result diagrams: 06/10/22 15:14 06/10/22 15:14 Labs: Lab Results 06/10/22 06/10/22 06/10/22 Range/Units 15:14 15:14 15:14 WBC 5.5 (4.8-10.8) X10*3/uL RBC 3.88 L (4.20-5.50) X10*6/uL Hgb 11.3 L (12.0-16.0) g/dl Hct 34.3 L (37.0-47.0) % MCV 88.4 (80.0-98.0) fL MCH 29.1 (27.0-33.0) pg MCHC 32.9 (31.0-35.0) g/dl RDW 15.6 (11.0-16.0) % Plt Count 118 L (160-400) X10*3/uL MPV 9.9 (9.4-12.3) fL Immature Gran % (Auto) 0.9 H (0.0-0.4) % Neut % (Auto) 66.6 (45-73) % Lymph % (Auto) 21.5 (20-40) % [place] % (Auto) 9.5 (2-11) % Eos % (Auto) 0.6 (0-4) % Baso % (Auto) 0.9 (0-2) % Lymph # (Auto) 1.2 (1.2-4.9) X10*3/uL [place] # (Auto) 0.5 (0.1-1.2) X10*3/uL Eos # (Auto) 0.0 (0.0-0.4) X10*3/uL Baso # (Auto) 0.1 (0.0-0.2) X10*3/uL Abs Immat Gran (auto) 0.05 H (0.00-0.03) X10*3/uL Absolute Neuts (auto) 3.6 (2.0-8.3) x10*3/uL Absolute Nucleated RBC 0.000 (0.0-0.012) X10*3/uL Nucleated RBC % (auto) 0.0 (0.0-0.2) /100WBC PT (10.0-13.1) SEC INR (0.9-1.1) APTT (26.0-36.4) SEC Sodium 141 (135-145) mmol/L Potassium 3.5 (3.3-5.1) mmol/L Chloride 108 (96-108) mmol/L Carbon Dioxide 23 (22-29) mmol/L Anion Gap 14 (12-20) BUN 8 L (9-16) mg/dL Creatinine 0.88 (0.5-1.4) mg/dL Estim Creat Clear Calc 54.2 Estimated GFR > 60 Random Glucose 83 (60-115) mg/dL Calcium 7.6 L (8.4-10.2) mg/dL Magnesium 1.6 (1.6-2.6) mg/dL Total Bilirubin 2.9 H (0.0-1.0) mg/dL AST 50 H D (5-31) U/L ALT 11 (0-31) U/L Alkaline Phosphatase 54 D (39-117) U/L B-Natriuretic Peptide 223 H (<100) pg/mL Total Protein 5.8 L (6.5-8.0) g/dL Albumin 2.1 L (3.5-5.0) g/dL Lipase 27 (8-78) U/L Peritoneal WBC X10*3/uL Peritoneal RBC X10*6/uL Periton Neutrophils % Periton Lymphocytes % Peritoneal Monocytes % Peritoneal Other Cells % Ethyl Alcohol 43 mg/dL 06/10/22 06/10/22 Range/Units 16:15 19:09 WBC (4.8-10.8) X10*3/uL RBC (4.20-5.50) X10*6/uL Hgb (12.0-16.0) g/dl Hct (37.0-47.0) % MCV (80.0-98.0) fL MCH (27.0-33.0) pg MCHC (31.0-35.0) g/dl RDW (11.0-16.0) % Plt Count (160-400) X10*3/uL MPV (9.4-12.3) fL Immature Gran % (Auto) (0.0-0.4) % Neut % (Auto) (45-73) % Lymph % (Auto) (20-40) % [place] % (Auto) (2-11) % Eos % (Auto) (0-4) % Baso % (Auto) (0-2) % Lymph # (Auto) (1.2-4.9) X10*3/uL [place] # (Auto) (0.1-1.2) X10*3/uL Eos # (Auto) (0.0-0.4) X10*3/uL Baso # (Auto) (0.0-0.2) X10*3/uL Abs Immat Gran (auto) (0.00-0.03) X10*3/uL Absolute Neuts (auto) (2.0-8.3) x10*3/uL Absolute Nucleated RBC (0.0-0.012) X10*3/uL Nucleated RBC % (auto) (0.0-0.2) /100WBC PT 13.3 H (10.0-13.1) SEC INR 1.2 H (0.9-1.1) APTT 32.9 (26.0-36.4) SEC Sodium (135-145) mmol/L Potassium (3.3-5.1) mmol/L Chloride (96-108) mmol/L Carbon Dioxide (22-29) mmol/L Anion Gap (12-20) BUN (9-16) mg/dL Creatinine (0.5-1.4) mg/dL Estim Creat Clear Calc Estimated GFR Random Glucose (60-115) mg/dL Calcium (8.4-10.2) mg/dL Magnesium (1.6-2.6) mg/dL Total Bilirubin (0.0-1.0) mg/dL AST (5-31) U/L ALT (0-31) U/L Alkaline Phosphatase (39-117) U/L B-Natriuretic Peptide (<100) pg/mL Total Protein (6.5-8.0) g/dL Albumin (3.5-5.0) g/dL Lipase (8-78) U/L Peritoneal WBC 0.033 X10*3/uL Peritoneal RBC < 0.002 X10*6/uL Periton Neutrophils 3 % Periton Lymphocytes 37 % Peritoneal Monocytes 42 % Peritoneal Other Cells 18 % Ethyl Alcohol mg/dL Imaging Data CT scan abdomen pelvis with IV contrast: Attestation: I personally reviewed and interpreted this imaging study as follows: Radiologist's impression: FINDINGS: LUNG BASES: Mild bibasilar atelectasis/scarring, right greater than left. No pericardial effusion.? LIVER, GALLBLADDER, AND BILIARY TREE: Hepatic cirrhosis without focal parenchymal abnormality. Small cyst centrally in the right hepatic lobe measuring 1.1 cm densities image 12, series 3). Mild pneumobilia. The gallbladder contains small dependent gallstones and a without surrounding abnormality. PANCREAS: Unremarkable.? SPLEEN: Unremarkable.? ADRENAL GLANDS: Unremarkable.? KIDNEYS AND URETERS: No hydroureteronephrosis or nephrolithiasis bilaterally. Small cyst medially in the upper pole the left kidney measuring 0.7 cm (image 110, series 6). BLADDER: Unremarkable.? GASTROINTESTINAL TRACT: Prominent varices at the level the gastric cardia and gastroesophageal junction. No other significant gastric abnormality. Small bowel loops are displaced anteriorly and centrally from the ascites. Moderate to severe diverticulosis is seen in the descending and sigmoid colon. PERITONEUM: Large ascites ABDOMINAL WALL: Generalized anasarca.? LYMPH NODES: No lymphadenopathy. VASCULAR: Sequelae of portal hypertension including upper abdominal and esophageal varices. PELVIC VISCERA: Unremarkable.? OSSEOUS STRUCTURES: Multilevel degenerative changes in the thoracolumbar spine with moderate to severe degenerative disc disease at L5-S1. CT/CT abdomen pelvis w con IMPRESSION: 1. Hepatic cirrhosis with large peritoneal ascites representing significant interval increase from the previous study. Sequelae of portal hypertension as detailed above. 2. Pneumobilia and cholelithiasis. Small central hepatic cyst demonstrates benign features without significant interval change. 3. Moderate to severe distal colonic diverticulosis without evidence for acute diverticulitis. ? Fleischner guidelines were followed. ECG Data Attestation: I personally reviewed and interpreted this ECG as follows: ECG interpretation date: 06/10/22 ECG interpretation time: 20:27 Interpretation: EKG normal sinus rhythm with a ventricular rate of 93 with a normal AR interval normal QRS duration normal QT/QTC interval. No acute ischemic change are noted. Similar compared to prior EKG 03/02/2021 Critical Care Time Critical Care Time Critical Care Time: Yes Total Critical Care Time: 60 Attestation: I personally attest to this time spent taking care of the patient Discharge Plan Discharge Clinical Impression: Hepatic cirrhosis, Portal hypertension, Hypoxic, Breath shortness, Candidiasis Patient Disposition: Admitted As Inpatient
[2022-06-10] MEDS: HYDROmorphone HCl 1 MG/ML SYRINGE IVPUSH ×2 (17:23→19:27)
[2022-06-10 17:53] VITALS: BP 164/100; PULSE 98; RESP 20; TEMP 36.7; O2SAT 93
[2022-06-10 19:21] LABS: MN% 85.7 %; PMN% 14.3 %; WBC Peritoneal Fluid 0.033 X10*3/uL
[2022-06-10 19:25] LABS: RBC Peritoneal Fluid < 0.002 X10*6/uL
[2022-06-10 19:27] VITALS: RESP 15
[2022-06-10 19:56] LABS: BF Shift QC OK YES; Lymphocyte Peritoneal Fl 37 %; Monocytes Peritoneal Fl 42 %; Neutrophils Peritoneal Fluid 3 %; Other Peritioneal Fl 18 %
--- NOTE | 2022-06-10 20:08 | ECG_ITS ---
Test Reason : REPEAT Blood Pressure : / mmHG Vent. Rate : 093 BPM Atrial Rate : 093 BPM P-R Int : 186 ms QRS Dur : 084 ms QT Int : 380 ms P-R-T Axes : 015 -18 008 degrees QTc Int : 472 ms Normal sinus rhythm Nonspecific T wave abnormality Abnormal ECG When compared with ECG of 02-MAR-2021 09:24, Nonspecific T wave abnormality has replaced inverted T waves in Inferior leads Referred By: Alexia Rodas Electronically Signed By:SOCORRO WU
--- NOTE | 2022-06-10 20:13 | PHA.MEDREC ---
Pharmacy Consult ? Medication Reconciliation Pharmacy has completed the medication reconciliation. Patient states she takes no medications at home. However, there are claims from [employer] for 90 day supplies of furosemide and spironolactone.
[2022-06-10] MEDS: ondansetron HCL 4 MG/2 ML VIAL IVPUSH (20:25)
[2022-06-10] MEDS: Lidocaine HCl 1 % MPF 5 ML VIAL 20 ML SUBCUT (20:26)
[2022-06-10 21:18] VITALS: RESP 14
[2022-06-10] MEDS: Furosemide 40 MG/4 ML VIAL IVPUSH (21:19)
[2022-06-10 22:10] LABS: Lactic Acid 2.1 mmol/L (0.5-2.0)
[2022-06-10 22:12] LABS: COVID-19 Test Negative (Negative); IDNOW Serial# 55D5AD1C
[2022-06-10] MEDS: Piperacillin Sodium/Tazobactam 2.25 GM in 0.9 % Sodium Chloride 50 ML IV (22:23)
[2022-06-10] MEDS: Heparin Sodium,Porcine 5,000 UNIT/ML VIAL 5000 UNIT SUBCUT (22:23)
[2022-06-10 23:49] VITALS: BP 150/85; PULSE 102; RESP 14; TEMP 36.9; O2SAT 97
[2022-06-10 23:53] LABS: Reflex Lactate? Lactic Acid Added
[2022-06-11] VITALS (8 sets, daily range): BP systolic 116–156; BP diastolic 65–109; PULSE 84–98; RESP 13–20; TEMP 36.1–37.2; O2SAT 92–97
[2022-06-11] MEDS: 0.9 % Sodium Chloride Flush 3 ML SYRINGE IVFLUSH ×3 (00:13→21:29)
[2022-06-11 00:55] LABS: Appearance Urine Cloudy; Color Urine Yellow; Glucose Urine UA Negative (Negative); Leukocyte Esterase Urine Large (3+) (Negative); Nitrite Urine Negative (Negative); Specific Gravity - Urine 1.015 (1.005-1.025); Urine Blood Small (1+) (Negative); Urine Ketones Negative (Negative); Urine Protein 100 (2+) mg/dL (Neg-Trace)
[2022-06-11 01:10] LABS: Bacteria Urine 1+ (None Seen); Hyaline Casts Urine 0-2 /LPF (0-2); UACC Culture Trigger YES; WBC Urine >50 /HPF (0-5)
[2022-06-11 01:16] LABS: ~Lactic Acid-LAB USE ONLY 2.7 mmol/L (0.5-2.0)
[2022-06-11] MEDS: Morphine Sulfate 4 MG/ML CARTRIDGE IVPUSH ×4 (01:46→23:34)
[2022-06-11 02:50] LABS: Reflex Lactate? 2 Y
[2022-06-11 04:10] LABS: Basophils Percent Auto 0.7 % (0-2); Eosinophils Absolute Auto 0.1 X10*3/uL (0.0-0.4); Eosinophils Percent Auto 1.1 % (0-4); Hematocrit 32.9 % (37.0-47.0); Imm Gran Abs Auto 0.04 X10*3/uL (0.00-0.03); Imm Gran Pct Auto 0.7 % (0.0-0.4); Lymphocytes Absolute Auto 0.7 X10*3/uL (1.2-4.9); Lymphocytes Percent Auto 12.6 % (20-40); MANUAL DIFF FLAG NO; Mean Corpuscular HGB Conc 33.4 g/dl (31.0-35.0); Mean Corpuscular Hemoglobin 30.2 pg (27.0-33.0); Mean Corpuscular Volume 90.4 fL (80.0-98.0); Monocytes Absolute Auto 0.7 X10*3/uL (0.1-1.2); Monocytes Percent Auto 11.9 % (2-11); Neutrophils Absolute Auto 4.1 x10*3/uL (2.0-8.3); Platelet Count 95 X10*3/uL (160-400); Red Blood Count 3.64 X10*6/uL (4.20-5.50); Red Cell Distribution Width 15.6 % (11.0-16.0); White Blood Count 5.6 X10*3/uL (4.8-10.8)
[2022-06-11 04:27] LABS: Anion Gap 14 (12-20); Blood Urea Nitrogen 8 mg/dL (9-16); Calcium 7.5 mg/dL (8.4-10.2); Carbon Dioxide 22 mmol/L (22-29); Chloride 106 mmol/L (96-108); Creatinine Clr Calc Pharmacy 53.6; Estimated Glomerular Filt Rate > 60; Glucose Random 115 mg/dL (60-115); Potassium 3.3 mmol/L (3.3-5.1); Sodium 139 mmol/L (135-145)
[2022-06-11 04:34] LABS: ~Lactic Acid-LAB USE ONLY 2.9 mmol/L (0.5-2.0)
--- NOTE | 2022-06-11 04:34 | PC.NURSE ---
critical lab of lactic 2.9 reported to MATY Morton
--- NOTE | 2022-06-11 04:43 | PC.NURSE ---
Lab called critical result for Lactic Acid 2.9 at 3:52 am, Dr. Wood notified. put an order in for LR at 100 ml/hr.
[2022-06-11] MEDS: Lactated Ringers 1,000 ML 80 ML IVCONT (04:50)
--- NOTE | 2022-06-11 06:30 | PM.IMHP ---
History of Present Illness Date of Service: 06/10/22 Chief Complaint: abdominal distension 66-year-old female with past medical history of liver cirrhosis, 66-year-old female with past medical history of liver cirrhosis presents to the hospital with complaints of abdominal distension. Patient reports that her abdominal distension usually acs up but this time was severe. She reports that her abdomen was so distended that she could not even see her feet. She reports general abdominal tenderness as a result of the distension but denies any fever or chills.She has shortness of breath, orthopnea and PND, denies any cough or sputum production. Reports no chest pain, no nausea or vomiting, no diarrhea constipation, no urinary symptoms, And has who extremity edema that she noticed for the past few days. On arrival to the ED patient hemodynamically stable with O2 dropping to 88% on room air. labs are significant for WBC count of 5.6, hemoglobin of 11, hematocrit 32.9, lactic acid of 2.1, total bili of 2.9, BNP 0 223, and albumin of 2.1. Around 00:00 patient started complaining of urinary retention, UA was obtained which was positive for leukocyte Estrace and WBC. Abdomen pelvic CT shows hepatic cirrhosis with large peritoneal ascites presenting significant interval increased from the previous study, pneumobilia in cholelithiasis without was present in 2020. Surgery was consulted regarding the pneumobilia and felt that it was chronic and no need for acute intervention Chest x-ray showed elevation of right hemidiaphragm with right this alarmed it lactase is and possible small right basilar pleural effusion Review of Systems Review of Systems: Yes all other systems are reviewed and are negative [facility] Medical History Cirrhosis Surgical History H/O brain surgery Social History Alcohol intake: current Alcohol intake frequency: 3 or more drinks per day Patient Tobacco Use Status: Current everyday Tobacco user Advance Directives: No Advance Directives Information Provided: No Meds Allergies Allergy/AdvReac Type Severity Reaction Status Date / Time lithium [LITHIUM] Allergy Intermediate UNKNOWN Unverified 07/02/20 15:21 acetaminophen [From TYLENOL] Allergy Unknown UNABLE TO Unverified 07/02/20 15:21 TAKE DUE TO LIVER pioglitazone [From ACTOS] Allergy Unknown HEAD Unverified 07/02/20 15:21 PRESSURE, TACHYCARDIA, racing heart Active Medications: Current Medications Docusate Sodium (Docusate Sodium 100 Mg Capsule) 100 mg PO DAILY PRN PRN Reason: Constipation Furosemide (Furosemide 40 Mg/4 Ml Vial) 40 mg IVPUSH DAILY [facility]; Protocol Heparin Sodium (Porcine) (Heparin Sodium,Porcine 5,000 Unit/Ml Vial) 5,000 unit SUBCUT Q12H [facility] Last Admin: 06/10/22 22:23 Dose: 5,000 unit Lactated Ringer's (Lr) 1,000 mls @ 80 mls/hr IVCONT .[id number] [facility] Last Admin: 06/11/22 04:50 Dose: 80 mls/hr Ceftriaxone Sodium 1 gm/ (Sodium Chloride) 50 mls @ 100 mls/hr IV Q24H [facility] Morphine Sulfate (Morphine Sulfate 4 Mg/Ml Cartridge) 4 mg IVPUSH Q4H PRN; Protocol PRN Reason: Pain, Severe (Pain Scale 7-10) Last Admin: 06/11/22 01:46 Dose: 4 mg Nystatin (Nystatin Powder 15 Gm Bottle) 1 appl TOPICAL BID [facility]; Protocol Ondansetron HCl (Ondansetron Hcl 4 Mg/2 Ml Vial) 4 mg IVPUSH Q8H PRN PRN Reason: Nausea and Vomiting Pharmacy Consult (Consult Rx Perform Med Rec) 1 each MISCELLANE ONCE PRN PRN Reason: Consult order Sodium Chloride (0.9 % Sodium Chloride Flush 3 Ml Syringe) 3 ml IVFLUSH QSHIFT [facility] Last Admin: 06/11/22 00:13 Dose: 3 ml Physical Exam Vital Signs and Narrative: Vital Signs: Last Vital Signs Temp 98.0 F 06/11/22 06:00 Pulse 94 06/11/22 06:00 Resp 13 06/11/22 06:00 BP 135/109 H 06/11/22 06:00 Pulse Ox 97 06/11/22 06:00 O2 Del Method 06/11/22 06:00 O2 Flow Rate 4 06/11/22 06:00 BMI result Body Mass Index 25.6 Const: General: cooperative and no acute distress Orientation/consciousness: patient oriented x3 Eyes: General: appearance normal, both eyes and all related structures Resp: Effort & Inspection: normal respiratory effort Auscultation: clear to auscultation bilaterally Cardio: Rate: regular rate Rhythm: regular rhythm GI: Other: abdomen distended,soft, mild tenderness with no rebound or guarding Palpation (GI): Soft to palpation Auscultation: normal bowel sounds Skin: General skin exam: no rashes or lesions noted Neuro: General: patient oriented x3 Cognition (Neuro): normal cognition Extrem: General: Yes normal to inspection and Yes no pedal edema Results Labs CBC and Chem 7: 06/11/22 03:51 06/11/22 03:51 Labs: Laboratory Results - last 24 hr 06/10/22 06/10/22 06/10/22 15:14 15:14 15:14 MCV 88.4 MCH 29.1 MCHC 32.9 RDW 15.6 Plt Count 118 L MPV 9.9 Immature Gran % (Auto) 0.9 H Neut % (Auto) 66.6 Lymph % (Auto) 21.5 [place] % (Auto) 9.5 Eos % (Auto) 0.6 Baso % (Auto) 0.9 Lymph # (Auto) 1.2 [place] # (Auto) 0.5 Eos # (Auto) 0.0 Baso # (Auto) 0.1 Abs Immat Gran (auto) 0.05 H Absolute Neuts (auto) 3.6 Absolute Nucleated RBC 0.000 Nucleated RBC % (auto) 0.0 PT INR APTT Anion Gap 14 Estim Creat Clear Calc 54.2 Estimated GFR > 60 Random Glucose 83 Lactic Acid Lactic Acid F/U @ 2Hr Lactic Acid F/U @ 4Hr Calcium 7.6 L Magnesium 1.6 Total Bilirubin 2.9 H AST 50 H D ALT 11 Alkaline Phosphatase 54 D B-Natriuretic Peptide 223 H Total Protein 5.8 L Albumin 2.1 L Lipase 27 Urine Color Urine Appearance Urine pH Ur Specific [place] Urine Protein Urine Glucose (UA) Urine Ketones Urine Blood Urine Nitrite Ur Leukocyte Esterase Urine RBC Urine WBC Ur Squamous Epith Cells Urine Bacteria Hyaline Casts Peritoneal WBC Peritoneal RBC Periton Neutrophils Periton Lymphocytes Peritoneal Monocytes Peritoneal Other Cells Ethyl Alcohol 43 COVID-19 ([facility]) COVID-19 Clin Com 06/10/22 06/10/22 06/10/22 16:15 19:09 21:48 MCV MCH MCHC RDW Plt Count MPV Immature Gran % (Auto) Neut % (Auto) Lymph % (Auto) [place] % (Auto) Eos % (Auto) Baso % (Auto) Lymph # (Auto) [place] # (Auto) Eos # (Auto) Baso # (Auto) Abs Immat Gran (auto) Absolute Neuts (auto) Absolute Nucleated RBC Nucleated RBC % (auto) PT 13.3 H INR 1.2 H APTT 32.9 Anion Gap Estim Creat Clear Calc Estimated GFR Random Glucose Lactic Acid Lactic Acid F/U @ 2Hr Lactic Acid F/U @ 4Hr Calcium Magnesium Total Bilirubin AST ALT Alkaline Phosphatase B-Natriuretic Peptide Total Protein Albumin Lipase Urine Color Urine Appearance Urine pH Ur Specific [place] Urine Protein Urine Glucose (UA) Urine Ketones Urine Blood Urine Nitrite Ur Leukocyte Esterase Urine RBC Urine WBC Ur Squamous Epith Cells Urine Bacteria Hyaline Casts Peritoneal WBC 0.033 Peritoneal RBC < 0.002 Periton Neutrophils 3 Periton Lymphocytes 37 Peritoneal Monocytes 42 Peritoneal Other Cells 18 Ethyl Alcohol COVID-19 ([facility]) Negative COVID-[employer] See Note 06/10/22 06/11/22 06/11/22 21:48 00:42 00:46 MCV MCH MCHC RDW Plt Count MPV Immature Gran % (Auto) Neut % (Auto) Lymph % (Auto) [place] % (Auto) Eos % (Auto) Baso % (Auto) Lymph # (Auto) [place] # (Auto) Eos # (Auto) Baso # (Auto) Abs Immat Gran (auto) Absolute Neuts (auto) Absolute Nucleated RBC Nucleated RBC % (auto) PT INR APTT Anion Gap Estim Creat Clear Calc Estimated GFR Random Glucose Lactic Acid 2.1 H* Lactic Acid F/U @ 2Hr 2.7 H* Lactic Acid F/U @ 4Hr Calcium Magnesium Total Bilirubin AST ALT Alkaline Phosphatase B-Natriuretic Peptide Total Protein Albumin Lipase Urine Color Yellow Urine Appearance Cloudy Urine pH 6.0 Ur Specific [place] 1.015 Urine Protein 100 (2+) H Urine Glucose (UA) Negative Urine Ketones Negative Urine Blood Small (1+) H Urine Nitrite Negative Ur Leukocyte Esterase Large (3+) H Urine RBC 6-10 H Urine WBC >50 H Ur Squamous Epith Cells 6-10 Urine Bacteria 1+ Hyaline Casts 0-2 Peritoneal WBC Peritoneal RBC Periton Neutrophils Periton Lymphocytes Peritoneal Monocytes Peritoneal Other Cells Ethyl Alcohol COVID-19 ([facility]) COVID-19 [employer] 06/11/22 06/11/22 06/11/22 03:51 03:51 03:52 MCV 90.4 MCH 30.2 MCHC 33.4 RDW 15.6 Plt Count 95 L MPV 10.0 Immature Gran % (Auto) 0.7 H Neut % (Auto) 73.0 Lymph % (Auto) 12.6 L [place] % (Auto) 11.9 H Eos % (Auto) 1.1 Baso % (Auto) 0.7 Lymph # (Auto) 0.7 L [place] # (Auto) 0.7 Eos # (Auto) 0.1 Baso # (Auto) 0.0 Abs Immat Gran (auto) 0.04 H Absolute Neuts (auto) 4.1 Absolute Nucleated RBC 0.000 Nucleated RBC % (auto) 0.0 PT INR APTT Anion Gap 14 Estim Creat Clear Calc 53.6 Estimated GFR > 60 Random Glucose 115 Lactic Acid Lactic Acid F/U @ 2Hr Lactic Acid F/U @ 4Hr 2.9 H* Calcium 7.5 L Magnesium Total Bilirubin AST ALT Alkaline Phosphatase B-Natriuretic Peptide Total Protein Albumin Lipase Urine Color Urine Appearance Urine pH Ur Specific [place] Urine Protein Urine Glucose (UA) Urine Ketones Urine Blood Urine Nitrite Ur Leukocyte Esterase Urine RBC Urine WBC Ur Squamous Epith Cells Urine Bacteria Hyaline Casts Peritoneal WBC Peritoneal RBC Periton Neutrophils Periton Lymphocytes Peritoneal Monocytes Peritoneal Other Cells Ethyl Alcohol COVID-19 ([facility]) COVID-19 Clin Com Imaging Radiologist's Impressions: Impressions Abdomen/Pelvis CT 06/10/22 16:57 IMPRESSION: 1. Hepatic cirrhosis with large peritoneal ascites representing significant interval increase from the previous study. Sequelae of portal hypertension as detailed above. 2. Pneumobilia and cholelithiasis. Small central hepatic cyst demonstrates benign features without significant interval change. 3. Moderate to severe distal colonic diverticulosis without evidence for acute diverticulitis. Fleischner guidelines were followed. Chest X-Ray 06/10/22 20:23 IMPRESSION: 1. Elevation right hemidiaphragm with mild right basilar atelectasis and possible small right basilar pleural effusion. Assessment and Plan (1) Acute respiratory failure with hypoxia: Status: Acute (2) UTI (urinary tract infection): Status: Acute (3) Abdominal distension: Status: Acute (4) Hepatic cirrhosis: Status: Acute Plan this 66-year-old female with past medical history of alcoholic liver cirrhosis presents to the hospital with abdominal distension found to have hypoxia as well as UTI # Acute hypoxic respiratory failure - likely secondary to pleural effusion in the setting o liver cirrhosis, and abdominal distension with possible CHF? - patient does have elevated BNP, pleural effusion on chest x-ray, orthopnea as well as PND - will treat with Lasix - daily weight, strict I&O, and low-sodium diet - consult Cardiology for further direction and guidance in regards to fluid status - no evidence of pneumonia # UTI - positive UA with urinary retention - will treat with IV antibiotics - follow cultures - no evidence of sepsis, patient has no leukocytosis, no tachycardia, no tachypnea, and afebrile # abdominal distension - secondary to liver cirrhosis - I have very little suspicious for SBP as abdominal paracentesis showed no evidence of SBP, patient afebrile, has no leukocytosis, - abdominal tenderness likely secondary to distension - patient will be covered with antibiotics for UTI # hepatic cirrhosis - reports history of alcohol abuse as well as hepatitis-C - currently drink 2 glasses of alcohol and last drink 2 nights ago, no evidence of withdrawl - will place on CIWA - discussed importasnce on absitenence given cirrhosis DVT prophylaxis: lovenox Pt will require a min 2 night stay given hypoixic resp failure Quality Stroke Does the patient have a stroke diagnosis?: No VTE Prior VTE?: No VTE Risk Level:: Medical - moderate - high VTE Device Contraindication: Treatment Not Indicated VTE Drug Contraindication: N/A - Med Ordered
--- NOTE | 2022-06-11 06:49 | PC.NURSE ---
Verbal order from Dr. Wood obtained to stop LR infusion.
--- NOTE | 2022-06-11 07:05 | PC.NURSE ---
Assumed care of pt. Meds given per DEC.
[2022-06-11] MEDS: cefTRIAXone sodium 1 GM in 0.9 % Sodium Chloride 50 ML IV (07:44)
[2022-06-11] MEDS: ondansetron HCL 4 MG/2 ML VIAL IVPUSH (07:45)
--- NOTE | 2022-06-11 10:42 | P.PNIM_ITS ---
Subjective Subjective Date of Service: 06/11/22 Interval History: the patient was seen and evaluated this morning Laying in bed, feels better overall but still complaining of abdominal pain and distension shortness of breath improving No reported other overnight events. Systemic review: No fever, chills but has generalized weakness No chest pain, palpitation No shortness of breath or coughing No abdominal pain, nausea or vomiting No urinary symptoms areas of bruising Physical Exam Vital Signs: Vital Signs: Last Vital Signs Temp 98.0 F 06/11/22 06:00 Pulse 94 06/11/22 06:00 Resp 20 06/11/22 07:44 BP 135/109 H 06/11/22 06:00 Pulse Ox 97 06/11/22 06:00 O2 Del Method 06/11/22 06:00 O2 Flow Rate 4 06/11/22 06:00 BMI result Body Mass Index 25.6 Const: Other: Constitutional : Alert, interactive, not in distress Neck : Normal inspection, Supple Cardiovascular : RRR, no JVP, no lower extremity edema Respiratory : fair bilateral air entry, no crackles, wheezes or rhonchi Gastrointestinal: soft, lax, Normal bowel sounds, Non tender, distended with moderate amount of ascites Skin : Warm, Dry, areas of bruises Neurological : Alert & oriented x3, No focal deficit , CN 2-12 within normal Objective Data Active Medications Docusate Sodium (Docusate Sodium 100 Mg Capsule) 100 mg PO DAILY PRN PRN Reason: Constipation Folic Acid (Folic Acid 1 Mg Tablet) 1 mg PO DAILY [facility] Furosemide (Furosemide 40 Mg/4 Ml Vial) 40 mg IVPUSH DAILY [facility]; Protocol Heparin Sodium (Porcine) (Heparin Sodium,Porcine 5,000 Unit/Ml Vial) 5,000 unit SUBCUT Q12H [facility] Last Admin: 06/10/22 22:23 Dose: 5,000 unit Documented By: MAGO Ceftriaxone Sodium 1 gm/ (Sodium Chloride) 50 mls @ 100 mls/hr IV Q24H [facility] Last Admin: 06/11/22 07:44 Dose: 100 mls/hr Documented By: SOCORRO Morphine Sulfate (Morphine Sulfate 4 Mg/Ml Cartridge) 4 mg IVPUSH Q4H PRN; Protocol PRN Reason: Pain, Severe (Pain Scale 7-10) Last Admin: 06/11/22 07:44 Dose: 4 mg Documented By: SOCORRO Nystatin (Nystatin Powder 15 Gm Bottle) 1 appl TOPICAL BID [facility]; Protocol Ondansetron HCl (Ondansetron Hcl 4 Mg/2 Ml Vial) 4 mg IVPUSH Q8H PRN PRN Reason: Nausea and Vomiting Last Admin: 06/11/22 07:45 Dose: 4 mg Documented By: SOCORRO Pharmacy Consult (Consult Rx Perform Med Rec) 1 each MISCELLANE ONCE PRN PRN Reason: Consult order Pharmacy Consult (Consult Rx Etoh Phenob Im/Po) 1 each MISCELLANE ONCE PRN; Protocol PRN Reason: Consult order Phenobarbital (Phenobarbital 15 Mg Tablet) 45 mg PO BID [facility] Stop: 06/13/22 09:01 Phenobarbital (Phenobarbital 15 Mg Tablet) 15 mg PO BID [facility] Stop: 06/15/22 09:01 Phenobarbital (Phenobarbital 15 Mg Tablet) 15 mg PO DAILY [facility] Stop: 06/16/22 09:01 Phenobarbital Sodium (Phenobarbital Sodium 130 Mg/Ml Vial Im Q3hx2) 120 mg IM Q3H [facility] Stop: 06/11/22 15:01 Sodium Chloride (0.9 % Sodium Chloride Flush 3 Ml Syringe) 3 ml IVFLUSH QSHIFT [facility] Last Admin: 06/11/22 07:26 Dose: 3 ml Documented By: SOCORRO Thiamine HCl (Thiamine Hcl 100 Mg Tablet) 100 mg PO DAILY [facility] Labs CBC & Chem 7: 06/11/22 03:51 06/11/22 03:51 Labs: Laboratory Results - last 24 hr 06/10/22 06/10/22 06/10/22 15:14 15:14 15:14 MCV 88.4 MCH 29.1 MCHC 32.9 RDW 15.6 Plt Count 118 L MPV 9.9 Immature Gran % (Auto) 0.9 H Neut % (Auto) 66.6 Lymph % (Auto) 21.5 [place] % (Auto) 9.5 Eos % (Auto) 0.6 Baso % (Auto) 0.9 Lymph # (Auto) 1.2 [place] # (Auto) 0.5 Eos # (Auto) 0.0 Baso # (Auto) 0.1 Abs Immat Gran (auto) 0.05 H Absolute Neuts (auto) 3.6 Absolute Nucleated RBC 0.000 Nucleated RBC % (auto) 0.0 PT INR APTT Anion Gap 14 Estim Creat Clear Calc 54.2 Estimated GFR > 60 Random Glucose 83 Lactic Acid Lactic Acid F/U @ 2Hr Lactic Acid F/U @ 4Hr Calcium 7.6 L Magnesium 1.6 Total Bilirubin 2.9 H AST 50 H D ALT 11 Alkaline Phosphatase 54 D B-Natriuretic Peptide 223 H Total Protein 5.8 L Albumin 2.1 L Lipase 27 Urine Color Urine Appearance Urine pH Ur Specific Fisher Urine Protein Urine Glucose (UA) Urine Ketones Urine Blood Urine Nitrite Ur Leukocyte Esterase Urine RBC Urine WBC Ur Squamous Epith Cells Urine Bacteria Hyaline Casts Peritoneal WBC Peritoneal RBC Periton Neutrophils Periton Lymphocytes Peritoneal Monocytes Peritoneal Other Cells Ethyl Alcohol 43 COVID-19 ([facility]) COVID-19 Clin Com 06/10/22 06/10/22 06/10/22 16:15 19:09 21:48 MCV MCH MCHC RDW Plt Count MPV Immature Gran % (Auto) Neut % (Auto) Lymph % (Auto) [place] % (Auto) Eos % (Auto) Baso % (Auto) Lymph # (Auto) [place] # (Auto) Eos # (Auto) Baso # (Auto) Abs Immat Gran (auto) Absolute Neuts (auto) Absolute Nucleated RBC Nucleated RBC % (auto) PT 13.3 H INR 1.2 H APTT 32.9 Anion Gap Estim Creat Clear Calc Estimated GFR Random Glucose Lactic Acid Lactic Acid F/U @ 2Hr Lactic Acid F/U @ 4Hr Calcium Magnesium Total Bilirubin AST ALT Alkaline Phosphatase B-Natriuretic Peptide Total Protein Albumin Lipase Urine Color Urine Appearance Urine pH Ur Specific Fisher Urine Protein Urine Glucose (UA) Urine Ketones Urine Blood Urine Nitrite Ur Leukocyte Esterase Urine RBC Urine WBC Ur Squamous Epith Cells Urine Bacteria Hyaline Casts Peritoneal WBC 0.033 Peritoneal RBC < 0.002 Periton Neutrophils 3 Periton Lymphocytes 37 Peritoneal Monocytes 42 Peritoneal Other Cells 18 Ethyl Alcohol COVID-19 ([facility]) Negative COVID-19 Clin Com See Note 06/10/22 06/11/22 06/11/22 21:48 00:42 00:46 MCV MCH MCHC RDW Plt Count MPV Immature Gran % (Auto) Neut % (Auto) Lymph % (Auto) [place] % (Auto) Eos % (Auto) Baso % (Auto) Lymph # (Auto) [place] # (Auto) Eos # (Auto) Baso # (Auto) Abs Immat Gran (auto) Absolute Neuts (auto) Absolute Nucleated RBC Nucleated RBC % (auto) PT INR APTT Anion Gap Estim Creat Clear Calc Estimated GFR Random Glucose Lactic Acid 2.1 H* Lactic Acid F/U @ 2Hr 2.7 H* Lactic Acid F/U @ 4Hr Calcium Magnesium Total Bilirubin AST ALT Alkaline Phosphatase B-Natriuretic Peptide Total Protein Albumin Lipase Urine Color Yellow Urine Appearance Cloudy Urine pH 6.0 Ur Specific Fisher 1.015 Urine Protein 100 (2+) H Urine Glucose (UA) Negative Urine Ketones Negative Urine Blood Small (1+) H Urine Nitrite Negative Ur Leukocyte Esterase Large (3+) H Urine RBC 6-10 H Urine WBC >50 H Ur Squamous Epith Cells 6-10 Urine Bacteria 1+ Hyaline Casts 0-2 Peritoneal WBC Peritoneal RBC Periton Neutrophils Periton Lymphocytes Peritoneal Monocytes Peritoneal Other Cells Ethyl Alcohol COVID-19 ([facility]) COVID-[place]! 06/11/22 06/11/22 06/11/22 03:51 03:51 03:52 MCV 90.4 MCH 30.2 MCHC 33.4 RDW 15.6 Plt Count 95 L MPV 10.0 Immature Gran % (Auto) 0.7 H Neut % (Auto) 73.0 Lymph % (Auto) 12.6 L [place] % (Auto) 11.9 H Eos % (Auto) 1.1 Baso % (Auto) 0.7 Lymph # (Auto) 0.7 L [place] # (Auto) 0.7 Eos # (Auto) 0.1 Baso # (Auto) 0.0 Abs Immat Gran (auto) 0.04 H Absolute Neuts (auto) 4.1 Absolute Nucleated RBC 0.000 Nucleated RBC % (auto) 0.0 PT INR APTT Anion Gap 14 Estim Creat Clear Calc 53.6 Estimated GFR > 60 Random Glucose 115 Lactic Acid Lactic Acid F/U @ 2Hr Lactic Acid F/U @ 4Hr 2.9 H* Calcium 7.5 L Magnesium Total Bilirubin AST ALT Alkaline Phosphatase B-Natriuretic Peptide Total Protein Albumin Lipase Urine Color Urine Appearance Urine pH Ur Specific Fisher Urine Protein Urine Glucose (UA) Urine Ketones Urine Blood Urine Nitrite Ur Leukocyte Esterase Urine RBC Urine WBC Ur Squamous Epith Cells Urine Bacteria Hyaline Casts Peritoneal WBC Peritoneal RBC Periton Neutrophils Periton Lymphocytes Peritoneal Monocytes Peritoneal Other Cells Ethyl Alcohol COVID-19 ([facility]) COVID-19 [employer] Com 06/11/22 06:48 MCV MCH MCHC RDW Plt Count MPV Immature Gran % (Auto) Neut % (Auto) Lymph % (Auto) [place] % (Auto) Eos % (Auto) Baso % (Auto) Lymph # (Auto) [place] # (Auto) Eos # (Auto) Baso # (Auto) Abs Immat Gran (auto) Absolute Neuts (auto) Absolute Nucleated RBC Nucleated RBC % (auto) PT INR APTT Anion Gap Estim Creat Clear Calc Estimated GFR Random Glucose Lactic Acid 2.0 Lactic Acid F/U @ 2Hr Lactic Acid F/U @ 4Hr Calcium Magnesium Total Bilirubin AST ALT Alkaline Phosphatase B-Natriuretic Peptide Total Protein Albumin Lipase Urine Color Urine Appearance Urine pH Ur Specific Fisher Urine Protein Urine Glucose (UA) Urine Ketones Urine Blood Urine Nitrite Ur Leukocyte Esterase Urine RBC Urine WBC Ur Squamous Epith Cells Urine Bacteria Hyaline Casts Peritoneal WBC Peritoneal RBC Periton Neutrophils Periton Lymphocytes Peritoneal Monocytes Peritoneal Other Cells Ethyl Alcohol COVID-19 ([facility]) COVID-19 Clin Com Microbiology Microbiology Results: Microbiology 06/10/22 19:09 Gram Stain - Final Ascites Fluid Assessment and Plan (1) UTI (urinary tract infection): Status: Acute (2) Acute respiratory failure with hypoxia: Status: Acute (3) Hepatic cirrhosis: Status: Acute Plan this 66-year-old female with past medical history of alcoholic liver cirrhosis presents to the hospital with abdominal distension found to have hypoxia as well as UTI # Acute hypoxic respiratory failure improving secondary to pleural effusion in the setting o liver cirrhosis and abdominal distension with Fluid overload elevated BNP, pleural effusion on chest x-ray secondary to cirrhosis continue IV Lasix daily weight, strict I&O, and low-sodium diet hold on cardiology consult # UTI positive UA with urinary retention\ continue IV antibiotics follow cultures # abdominal distension secondary to liver cirrhosis no evidence of SBP, patient afebrile, has no leukocytosis, negative abdominal tap To do therapeutic paracentesis start spironolactone as tolerated # hepatic cirrhosis # Alcohol abuse and risk of withdrawal history of alcohol abuse as well as hepatitis-C currently drink 2 glasses of alcohol, positive alcohol level presentation keep on CIWA start phenobarbital protocol Advised complete absitenence given cirrhosis DVT prophylaxis. lovenox patient will need overnight hospital stay to continue treatment of acute hypoxic failure, ascites this and UTI pending final cultures to prevent possible decompensation. Quality Stroke Does the patient have a stroke diagnosis?: No VTE Prior VTE?: No VTE Risk Level:: Medical - moderate - high VTE Device Contraindication: Treatment Not Indicated VTE Drug Contraindication: N/A - Med Ordered
[2022-06-11] MEDS: Thiamine HCL 100 MG TABLET PO (11:09)
[2022-06-11] MEDS: Folic Acid 1 MG TABLET PO (11:09)
[2022-06-11] MEDS: PHENobarbitaL sodium 130 MG/ML IM ONCE 160 MG IM (11:10)
[2022-06-11] MEDS: Nystatin Powder 15 GM BOTTLE 1 APPL TOPICAL (11:11)
[2022-06-11] MEDS: Heparin Sodium,Porcine 5,000 UNIT/ML VIAL 5000 UNIT SUBCUT ×2 (11:11→21:29)
[2022-06-11] MEDS: Furosemide 40 MG/4 ML VIAL IVPUSH (11:11)
[2022-06-11] MEDS: Spironolactone 25 MG TABLET PO (11:17)
--- NOTE | 2022-06-11 11:27 | PHA.MEDREC ---
Pharmacy Consult ? Medication Reconciliation Pharmacy has completed the medication reconciliation. spoke with pt. She states she does not take any meds or vitamins
[2022-06-11] MEDS: Docusate Sodium 100 MG CAPSULE PO (12:23)
[2022-06-11] MEDS: Lidocaine HCl 1 % MPF 5 ML VIAL 4 ML SUBCUT (15:47)
--- NOTE | 2022-06-11 20:38 | PC.NURSE ---
Patient was received on the Med surg floor around 1900. Patient is on pheno protocol. Last recorded dose was noted at 11 am. Other doses were unable to be confirmed. Nurse in charge of patient left the hospital and unable to be reached. There were no documentation of admission on file. Patient is unclear whether she received it herself. MD and pharmacist consulted. Pheno was rescheduled. At the moment patient is alert and orientated. Breathing is baseline. Patient has mild anxiety. No reason for concern.
[2022-06-11] MEDS: PHENobarbitaL sodium 130 MG/ML VIAL IM Q3Hx2 120 MG IM ×2 (21:28→23:34)
[2022-06-12 03:51] VITALS: BP 148/65; PULSE 93; RESP 18; TEMP 36; O2SAT 95
[2022-06-12] MEDS: Morphine Sulfate 4 MG/ML CARTRIDGE IVPUSH ×5 (05:12→21:42)
[2022-06-12 06:16] LABS: Hematocrit 31.1 % (37.0-47.0); Hemoglobin 10.5 g/dl (12.0-16.0); Mean Corpuscular HGB Conc 33.8 g/dl (31.0-35.0); Mean Corpuscular Hemoglobin 29.5 pg (27.0-33.0); Mean Corpuscular Volume 87.4 fL (80.0-98.0); Mean Platelet Volume 10.2 fL (9.4-12.3); Platelet Count 84 X10*3/uL (160-400); Red Blood Count 3.56 X10*6/uL (4.20-5.50); Red Cell Distribution Width 15.4 % (11.0-16.0); White Blood Count 5.3 X10*3/uL (4.8-10.8)
[2022-06-12] MEDS: cefTRIAXone sodium 1 GM in 0.9 % Sodium Chloride 50 ML IV (06:55)
[2022-06-12 06:56] LABS: Alanine Aminotransferase 9 U/L (0-31); Alkaline Phosphatase 36 U/L (39-117); Aspartate Amino Transferase 38 U/L (5-31); Bilirubin Direct 1.2 mg/dL (0.0-0.5); Bilirubin Total 1.6 mg/dL (0.0-1.0); Total Protein 4.1 g/dL (6.5-8.0)
[2022-06-12 07:03] LABS: Anion Gap 10 (12-20); Blood Urea Nitrogen 8 mg/dL (9-16); Calcium 6.9 mg/dL (8.4-10.2); Carbon Dioxide 27 mmol/L (22-29); Chloride 102 mmol/L (96-108); Creatinine Clr Calc Pharmacy 50.8; Estimated Glomerular Filt Rate 59; Glucose Random 67 mg/dL (60-115); Potassium 2.8 mmol/L (3.3-5.1); Sodium 136 mmol/L (135-145)
[2022-06-12] MEDS: Folic Acid 1 MG TABLET PO (07:18)
[2022-06-12] MEDS: Spironolactone 25 MG TABLET PO (07:18)
[2022-06-12] MEDS: Thiamine HCL 100 MG TABLET PO (07:18)
[2022-06-12] MEDS: PHENobarbitaL 15 MG TABLET 45 MG PO ×2 (07:18→20:01)
[2022-06-12 07:34] VITALS: BP 108/67; PULSE 83; RESP 18; TEMP 36.7; O2SAT 95
[2022-06-12] MEDS: Potassium Chloride Packet 20 MEQ PACKET 40 MEQ PO ×2 (08:22→11:41)
[2022-06-12] MEDS: Heparin Sodium,Porcine 5,000 UNIT/ML VIAL 5000 UNIT SUBCUT ×2 (08:22→20:00)
[2022-06-12] MEDS: Potassium Chloride/H20 10 MEQ/100 ML PIGGYBACK 100 MEQ IV ×2 (08:28→09:27)
--- NOTE | 2022-06-12 09:59 | P.PNIM_ITS ---
Subjective Subjective Date of Service: 06/12/22 Interval History: the patient was seen and evaluated this morning Laying in bed, feels Much better No more abdominal pain or distension back on room air No reported other overnight events. Systemic review: No fever, chills but has generalized weakness No chest pain, palpitation No shortness of breath or coughing No abdominal pain, nausea or vomiting No urinary symptoms areas of bruising Physical Exam Vital Signs: Vital Signs: Last Vital Signs Temp 98.0 F 06/12/22 07:34 Pulse 83 06/12/22 07:34 Resp 18 06/12/22 07:34 BP 108/67 06/12/22 07:34 Pulse Ox 95 06/12/22 07:34 O2 Del Method 06/12/22 07:34 O2 Flow Rate 4 06/11/22 06:00 BMI result Body Mass Index 25.6 Const: Other: Constitutional : Alert, interactive, not in distress Neck : Normal inspection, Supple Cardiovascular : RRR, no JVP, no lower extremity edema Respiratory : fair bilateral air entry, no crackles, wheezes or rhonchi Gastrointestinal: soft, lax, Normal bowel sounds, Non tender, distension improved, mild amount of ascites Skin : Warm, Dry, areas of bruises Neurological : Alert & oriented x3, No focal deficit , CN 2-12 within normal General: no acute distress Objective Data Active Medications Docusate Sodium (Docusate Sodium 100 Mg Capsule) 100 mg PO DAILY PRN PRN Reason: Constipation Last Admin: 06/11/22 12:23 Dose: 100 mg Documented By: SOCORRO Folic Acid (Folic Acid 1 Mg Tablet) 1 mg PO DAILY [facility] Last Admin: 06/12/22 07:18 Dose: 1 mg Documented By: ALVA Furosemide (Furosemide 40 Mg/4 Ml Vial) 40 mg IVPUSH DAILY [facility]; Protocol Last Admin: 06/12/22 07:20 Dose: Not Given Documented By: ALVA Non-Admin Reason: Physician Held Med Heparin Sodium (Porcine) (Heparin Sodium,Porcine 5,000 Unit/Ml Vial) 5,000 unit SUBCUT Q12H [facility] Last Admin: 06/12/22 08:22 Dose: 5,000 unit Documented By: ALVA Ceftriaxone Sodium 1 gm/ (Sodium Chloride) 50 mls @ 100 mls/hr IV Q24H [facility] Last Infusion: 06/12/22 07:29 Dose: 0 mls/hr Documented By: ALVA Potassium Chloride (Potassium Chloride/H20) 10 meq in 100 mls @ 100 mls/hr IV Q1H [facility] Stop: 06/12/22 10:59 Last Admin: 06/12/22 09:27 Dose: 100 mls/hr Documented By: ALVA Lactic Acid (Ammonium Lactate 12 % Lotion 226 Gm Bottle) 1 appl TOPICAL BID [facility]; Protocol Morphine Sulfate (Morphine Sulfate 4 Mg/Ml Cartridge) 4 mg IVPUSH Q4H PRN; Protocol PRN Reason: Pain, Severe (Pain Scale 7-10) Last Admin: 06/12/22 09:19 Dose: 4 mg Documented By: ALVA Nystatin (Nystatin Powder 15 Gm Bottle) 1 appl TOPICAL BID [facility]; Protocol Last Admin: 06/11/22 21:28 Dose: Not Given Documented By: ELLIE Non-Admin Reason: Patient Refused Omeprazole (Omeprazole 20 Mg Capsule.Dr) 20 mg PO DAILY@0630 [facility] Ondansetron HCl (Ondansetron Hcl 4 Mg/2 Ml Vial) 4 mg IVPUSH Q8H PRN PRN Reason: Nausea and Vomiting Last Admin: 06/11/22 07:45 Dose: 4 mg Documented By: SOCORRO Pharmacy Consult (Consult Rx Etoh Phenob Im/Po) 1 each MISCELLANE ONCE PRN; Protocol PRN Reason: Consult order Pharmacy Consult (Consult Rx Perform Med Rec) 1 each MISCELLANE ONCE PRN PRN Reason: Consult order Phenobarbital (Phenobarbital 15 Mg Tablet) 45 mg PO BID [facility] Stop: 06/13/22 09:01 Last Admin: 06/12/22 07:18 Dose: 45 mg Documented By: ALVA Phenobarbital (Phenobarbital 15 Mg Tablet) 15 mg PO BID [facility] Stop: 06/15/22 09:01 Phenobarbital (Phenobarbital 15 Mg Tablet) 15 mg PO DAILY [facility] Stop: 06/16/22 09:01 Potassium Chloride (Potassium Chloride Packet 20 Meq Packet) 40 meq PO Q2H [facility] Stop: 06/12/22 10:16 Last Admin: 06/12/22 08:22 Dose: 40 meq Documented By: ALVA Sodium Chloride (0.9 % Sodium Chloride Flush 3 Ml Syringe) 3 ml IVFLUSH QSHIFT [facility] Last Admin: 06/12/22 07:29 Dose: Not Given Documented By: ALVA Non-Admin Reason: IV Running Spironolactone (Spironolactone 25 Mg Tablet) 25 mg PO DAILY [facility]; Protocol Last Admin: 06/12/22 07:18 Dose: 25 mg Documented By: ALVA Thiamine HCl (Thiamine Hcl 100 Mg Tablet) 100 mg PO DAILY [facility] Last Admin: 06/12/22 07:18 Dose: 100 mg Documented By: ALVA Labs CBC & Chem 7: 06/12/22 05:48 06/12/22 05:48 Labs: Laboratory Results - last 24 hr 06/12/22 06/12/22 06/12/22 05:48 05:48 05:48 MCV 87.4 MCH 29.5 MCHC 33.8 RDW 15.4 Plt Count 84 L MPV 10.2 Absolute Nucleated RBC 0.000 Nucleated RBC % (auto) 0.0 Anion Gap 10 L Estim Creat Clear Calc 50.8 Estimated GFR 59 Random Glucose 67 Calcium 6.9 L D Total Bilirubin 1.6 H Direct Bilirubin 1.2 H AST 38 H ALT 9 Alkaline Phosphatase 36 L D Total Protein 4.1 L D Albumin 2.0 L Microbiology Microbiology Results: Microbiology 06/10/22 19:09 Gram Stain - Final Ascites Fluid Routine Culture - Preliminary No growth to date. Anaerobic Culture - Preliminary No growth to date. 06/10/22 21:53 Blood Culture - Preliminary Blood - Venous No growth after 24 hours. 06/10/22 21:48 Blood Culture - Preliminary Blood - Venous No growth after 24 hours. Assessment and Plan (1) UTI (urinary tract infection): Status: Acute (2) Acute respiratory failure with hypoxia: Status: Acute (3) Ascites: Status: Acute Plan this 66-year-old female with past medical history of alcoholic liver cirrhosis presents to the hospital with abdominal distension found to have hypoxia as well as UTI # Acute hypoxic respiratory failure resolved secondary to pleural effusion in the setting o liver cirrhosis lungs clear on exam today continue IV Lasix daily weight, strict I&O, and low-sodium diet # UTI positive UA with urinary retention continue IV antibiotics pending cultures # abdominal distension 2/2 decompensated hepatic cirrhosis secondary to liver cirrhosis no evidence of SBP, patient afebrile, has no leukocytosis, negative abdominal tap therapeutic paracentesis done with removal of total 3.7 L increased spironolactone to 50 # Alcohol abuse and risk of withdrawal history of alcohol abuse as well as hepatitis-C currently drink 2 glasses of alcohol, positive alcohol level presentation keep on CIWA start phenobarbital protocol Advised complete absitenence given cirrhosis Omeprazole, thiamine and folic acid # hypokalemia Potassium of 2.8 Secondary to Lasix Give replacement and repeat BMP DVT prophylaxis. Heparin patient will need overnight hospital stay to continue treatment of decompensated liver failure, ascites this and UTI pending final cultures to prevent possible decompensation. Quality Stroke Does the patient have a stroke diagnosis?: No VTE Prior VTE?: No VTE Risk Level:: Medical - moderate - high VTE Device Contraindication: Treatment Not Indicated VTE Drug Contraindication: N/A - Med Ordered
[2022-06-12] MEDS: Nystatin Powder 15 GM BOTTLE 1 APPL TOPICAL ×2 (10:32→20:15)
[2022-06-12] MEDS: Ammonium Lactate 12 % Lotion 226 GM BOTTLE 1 APPL TOPICAL ×2 (10:32→20:15)
[2022-06-12] MEDS: Furosemide 40 MG/4 ML VIAL IVPUSH (10:52)
[2022-06-12 11:38] VITALS: BP 116/77; PULSE 82; RESP 18; TEMP 36.2; O2SAT 94
[2022-06-12] MEDS: Docusate Sodium 100 MG CAPSULE PO (13:45)
[2022-06-12 16:00] VITALS: BP 133/68; PULSE 88; RESP 16; TEMP 36.2; O2SAT 99
--- NOTE | 2022-06-12 16:18 | MHC.CM.PN ---
PT REPORTS SHE LIVES ALONE AND IS INDEPENDENT WITH CARE PT REPORTS SHE DOES NOT USE DME OR SERVICES P[T SAYS SHE USED TO HAVE NURSING AND MOW, AND WOULD BE INTERESTED IN THEM AGAIN SHE SAYS SHE DOES NOT HAVE A PCP AT THIS TIME, SHE IS INTERESTED IN BEING CONNECTED WITH ONE, BUT SAYS SHE IS BAD AT GETTING TO HER APPTS PT REPORTS HER DAUGHTER IS HER HCP BUT SHE IS CONSIDERING CHANGING IT SHE IS AWARE CM CAN ASSIST PT IS COVID VACCINATED IMM DELIVERED CURRENT DC PLAN IS HOME WITH A REFERRAL TO [facility] PT WILL NEED TRANSPORTATION ARRANGED
[2022-06-12] MEDS: 0.9 % Sodium Chloride Flush 3 ML SYRINGE IVFLUSH ×2 (17:21→20:04)
[2022-06-12 20:00] VITALS: BP 134/74; PULSE 98; RESP 18; TEMP 36.6
[2022-06-12] MEDS: traZODone HCL 50 MG TABLET PO (21:42)
[2022-06-12] MEDS: ondansetron HCL 4 MG/2 ML VIAL IVPUSH (21:42)
[2022-06-12 23:59] VITALS: BP 126/69; PULSE 94; RESP 18; TEMP 36.1; O2SAT 95
[2022-06-13 03:47] VITALS: BP 107/57; PULSE 99; RESP 18; TEMP 36.4; O2SAT 98
[2022-06-13] MEDS: Morphine Sulfate 4 MG/ML CARTRIDGE IVPUSH ×3 (03:58→12:19)
--- NOTE | 2022-06-13 04:05 | PC.NURSE ---
Pt O2 sat was 88% RA at 0400, went BR back to bed, rechecked O2 sat 78% RA, apply O2 with NC 2L, 98%.
[2022-06-13] MEDS: Omeprazole 20 MG CAPSULE.DR PO (04:58)
[2022-06-13 05:14] VITALS: BMI 28.8
[2022-06-13 05:57] LABS: Mean Corpuscular Volume 86.8 fL (80.0-98.0); PLT CLUMP 1
[2022-06-13 05:59] LABS: Hematocrit 32.9 % (37.0-47.0); Hemoglobin 11.1 g/dl (12.0-16.0); Mean Corpuscular HGB Conc 33.7 g/dl (31.0-35.0); Mean Corpuscular Hemoglobin 29.3 pg (27.0-33.0); Mean Platelet Volume 10.8 fL (9.4-12.3); Red Blood Count 3.79 X10*6/uL (4.20-5.50); Red Cell Distribution Width 15.6 % (11.0-16.0)
[2022-06-13] MEDS: cefTRIAXone sodium 1 GM in 0.9 % Sodium Chloride 50 ML IV (06:11)
[2022-06-13 06:18] LABS: Anion Gap 13 (12-20); Blood Urea Nitrogen 9 mg/dL (9-16); Calcium 7.1 mg/dL (8.4-10.2); Carbon Dioxide 24 mmol/L (22-29); Chloride 101 mmol/L (96-108); Creatinine Clr Calc Pharmacy 40.1; Estimated Glomerular Filt Rate 42; Glucose Random 99 mg/dL (60-115); Potassium 3.3 mmol/L (3.3-5.1); Sodium 135 mmol/L (135-145)
[2022-06-13 06:21] LABS: Platelet Count 121 X10*3/uL (160-400)
[2022-06-13 07:23] VITALS: BP 130/76; PULSE 95; RESP 18; TEMP 36.6; O2SAT 93
[2022-06-13] MEDS: Spironolactone 25 MG TABLET 50 MG PO (08:05)
[2022-06-13] MEDS: PHENobarbitaL 15 MG TABLET 45 MG PO (08:06)
[2022-06-13] MEDS: Thiamine HCL 100 MG TABLET PO (08:06)
[2022-06-13] MEDS: Folic Acid 1 MG TABLET PO (08:06)
[2022-06-13] MEDS: 0.9 % Sodium Chloride Flush 3 ML SYRINGE IVFLUSH (08:07)
[2022-06-13] MEDS: Furosemide 40 MG/4 ML VIAL IVPUSH (08:07)
[2022-06-13] MEDS: Ammonium Lactate 12 % Lotion 226 GM BOTTLE 1 APPL TOPICAL (10:01)
[2022-06-13] MEDS: Nystatin Powder 15 GM BOTTLE 1 APPL TOPICAL (10:01)
--- NOTE | 2022-06-13 11:08 | PM.DS ---
DS: Providers Provider Date of Service: 06/13/22 Date of admission: 06/10/22 21:38 Primary care physician: None Physician DS: Diagnosis Discharge Diagnosis (1) UTI (urinary tract infection): Status: Resolved (2) Acute respiratory failure with hypoxia: Status: Resolved (3) Ascites: Status: Resolved (4) Hepatic cirrhosis: Status: Inactive DS: Summary Hospital Course Hospital Course: Admission note HPI ?66-year-old female with past medical history of liver cirrhosis, 66-year-old female with past medical history of liver cirrhosis presents to the hospital with complaints of abdominal distension.? Patient reports that her abdominal distension usually acs up ? but this time was severe.? She reports that her abdomen was so distended that she could not even see her feet.? She reports general abdominal tenderness as a result of the distension but denies any fever or chills.She has shortness of breath, orthopnea and PND, denies any cough or sputum production.? Reports no chest pain, no nausea or vomiting, no diarrhea constipation, no urinary symptoms, ? And has who extremity edema that she noticed for the past few days.? ? On arrival to the ED patient hemodynamically stable with O2 dropping to 88% on room air. ?labs are significant for WBC count of 5.6, hemoglobin of 11, hematocrit 32.9, lactic acid of 2.1, total bili of 2.9, BNP 0 223, and albumin of 2.1.? Around 00:00 patient started complaining of urinary retention, UA was obtained which was positive for leukocyte Estrace and WBC. Abdomen pelvic CT shows hepatic cirrhosis with large peritoneal ascites presenting significant interval increased from the previous study, pneumobilia in cholelithiasis without was present in 2020.? Surgery was consulted regarding the pneumobilia and felt that it was chronic and no need for acute intervention. Chest x-ray showed elevation of right hemidiaphragm with right this alarmed it lactase is and possible small right basilar pleural effusion Hospital course The patient was admitted to the hospital for evaluation of abdominal distension and hypoxia. Images were consistent with pleural effusion sitting of liver cirrhosis. Had paracentesis done in the emergency rolling out possibility of SBP. Had a 2nd paracentesis done in patient with removal of 4 L. Treated with IV Lasix and spironolactone with addition of folic acid and thiamine. Patient was weaned down to room air and became able to ambulate on room air with no reported dyspnea. Urinalysis was concerning for possible UTI. Treated with IV ceftriaxone. To finish total of 5 days of antibiotics. 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 Placed on CIWA protocol and started on phenobarbital protocol for alcohol withdrawal. Advised to get a primary care and follow-up with Gastroenterology as outpatient. monitor your water intake. Drink total of 1.5 L a day of hold fluids. Start high protein diet. Drink Ensure as well 3 times a day. finish Ceftin antibiotic as Prescribed start Lasix 40 mg daily and spironolactone 50 mg daily Get a scale and monitor your weight. Double your Lasix does if you are gaining weight and check with your PCP continue folic acid, thiamin, omeprazole as prescribed Use lactulose once daily with goal of 1 bowel movement a day. Hold for diarrhea To follow-up with PCP and Gastroenterology as outpatient. [place] [facility] Time Spent with Patient Time attestation: Total time spent providing and/or coordinating discharge services: Discharge coordination time: Greater than 30 minutes Quality: Safe Use of Opioids Does Pt have an Active Cancer Diagnosis on the Problem List?: No Quality: Stroke Does the patient have a stroke diagnosis?: No Physical Exam Vital Signs: Vital Signs: Last Vital Signs Temp 97.8 F 06/13/22 07:23 Pulse 95 06/13/22 07:23 Resp 18 06/13/22 07:23 BP 130/76 06/13/22 07:23 Pulse Ox 93 06/13/22 07:23 O2 Del Method 06/13/22 07:23 O2 Flow Rate 2 06/13/22 03:47 BMI result Body Mass Index 28.8 Const: Other: Constitutional : Alert, interactive, not in distress Neck : Normal inspection, Supple Cardiovascular : RRR, no JVP, no lower extremity edema Respiratory : fair bilateral air entry, no crackles, wheezes or rhonchi Gastrointestinal: soft, lax, Normal bowel sounds, Non tender, Mild distension of the abdomen, mild amount of ascites Skin : Warm, Dry, areas of bruises Neurological : Alert & oriented x3, No focal deficit , CN 2-12 within normal General: no acute distress DS: Data Data Completed and Pending Labs on day of discharge: Laboratory Results - last 24 hr 06/13/22 06/13/22 05:18 05:18 WBC 7.0 RBC 3.79 L Hgb 11.1 L Hct 32.9 L MCV 86.8 MCH 29.3 MCHC 33.7 RDW 15.6 Plt Count 121 L D MPV 10.8 Absolute Nucleated RBC 0.000 Nucleated RBC % (auto) 0.0 Sodium 135 Potassium 3.3 Chloride 101 Carbon Dioxide 24 Anion Gap 13 BUN 9 Creatinine 1.26 Estim Creat Clear Calc 40.1 Estimated GFR 42 Random Glucose 99 Calcium 7.1 L Preliminary micro results at discharge 06/10/22 19:09 Anaerobic Culture - Preliminary Ascites Fluid No growth to date. 06/10/22 21:53 Blood Culture - Preliminary Blood - Venous No growth after 48 hours. 06/10/22 21:48 Blood Culture - Preliminary Blood - Venous No growth after 48 hours. Imaging Chest x-ray: Radiologist's impression: ITS Impressions Abdomen/Pelvis CT 06/10/22 16:57 IMPRESSION: 1. Hepatic cirrhosis with large peritoneal ascites representing significant interval increase from the previous study. Sequelae of portal hypertension as detailed above. 2. Pneumobilia and cholelithiasis. Small central hepatic cyst demonstrates benign features without significant interval change. 3. Moderate to severe distal colonic diverticulosis without evidence for acute diverticulitis. Fleischner guidelines were followed. Chest X-Ray 06/10/22 20:23 IMPRESSION: 1. Elevation right hemidiaphragm with mild right basilar atelectasis and possible small right basilar pleural effusion. Discharge Plan Discharge Patient Disposition: Home, Self-Care Discharge Diagnosis: Acute hypoxic respiratory failure secondary to decompensated liver failure UTI Referrals: Physician,None [Primary Care Provider] - 2 days (your pcp) Janene Kinney MD [Physician] - 2 Weeks (Alcoholi cirrhosis, Ascites requiring Paracentesis. for establishment of care and eval. ) Discharge Medications: New spironolactone 25 mg Tablet 50 mg PO DAILY 30 Days Qty: 60 3RF Protocol: Hold for SBP< HOLD for SBP < : 90 omeprazole 20 mg Capsule,Delayed Release(Dr/Ec) 20 mg PO DAILY@0630 30 Days Qty: 30 0RF folic acid 1 mg Tablet 1 mg PO DAILY 30 Days Qty: 30 0RF thiamine mononitrate (vit B1) 100 mg Tablet 100 mg PO DAILY 30 Days Qty: 30 0RF lactulose 10 gram/15 mL (15 mL) solution 10 g PO DAILY Qty: 600 0RF cefuroxime axetil 250 mg tablet 250 mg PO Q12H Qty: 7 0RF furosemide 40 mg tablet 40 mg PO DAILY Qty: 30 3RF tramadol 50 mg tablet 50 mg PO Q8H PRN (Reason: pain (scale score 7-10)) Qty: 14 0RF Discharge Orders: Discharge Order (Routine); Ordered 06/13/22 Ordered By: Mackenzie Fonseca Diet: Low salt diet Activity on Discharge: As tolerated Stand Alone Forms: Patient Portal Discharge page Care Plan Goals: Read below Health Concerns: Read below Plan of Treatment: Read below Assessment: you were admitted to the hospital for evaluation of difficulty breathing. Found to have significant amount of extra fluids in your abdomen and surrounding your lungs that improved with usage of IV Lasix And doing paracentesis. Started on spironolactone along with Lasix. Noticed to have urine infection treated with IV antibiotics. monitor your water intake. Drink total of 1.5 L a day of hold fluids. Start high protein diet. Drink Ensure as well 3 times a day. finish Ceftin antibiotic as Prescribed start Lasix 40 mg daily and spironolactone 50 mg daily Get a scale and monitor your weight. Double your Lasix does if you are gaining weight and check with your PCP continue folic acid, thiamin, omeprazole as prescribed Use lactulose once daily with goal of 1 bowel movement a day. Hold for diarrhea To follow-up with PCP and Gastroenterology as outpatient. [place] [facility] [place]. Patient Instructions: High Protein Diet (DC), Ascites (DC) Discharge Date/Time: 06/13/22 13:25
--- NOTE | 2022-06-13 11:15 | MHC.CM.PN ---
PATIENT HAS BEEN MEDICALLY CLEARED FOR DISCHARGE TODAY; DISCHARGE DISPOSITION IS HOME SELF-CARE. [facility] [place] [facility] WILL TRANSPORT PATIENT HOME.
--- NOTE | 2022-06-13 13:37 | MHC.CM.PN ---
CM PROVIDED PATIENT WITH INFORMATION REGARDING PRIMARY CARE PROVIDERS. A REFERRAL TO [facility] HAS BEEN COMPLETED FOR ASSISTANCE AT HOME. [facility] WILL REACH OUT TO PATIENT 24-48 HOURS.
== END 2022-06-13 13:25 | disposition home or self-care (01) | DRG 432 ==
LOC: HO.ED 20:09 → HO.EDOVER 21:58 → HO.S3 06-11 13:45
PROVIDERS: Physician Assistant Medical; Admitting Provider Internal Medicine; Emergency Provider Emergency Medicine; Visit Provider Student in an Organized Health Care Education/Training Program
DX: K70.31 Alcoholic cirrhosis of liver with ascites (principal); J96.01 Acute respiratory failure with hypoxia; E87.2 Acidosis; N39.0 Urinary tract infection, site not specified; J91.8 Pleural effusion in other conditions classified elsewhere; B37.49 Other urogenital candidiasis; F10.10 Alcohol abuse, uncomplicated; K80.20 Calculus of gallbladder without cholecystitis without obstruction; E87.6 Hypokalemia; R33.9 Retention of urine, unspecified; Z20.822 Contact with and (suspected) exposure to COVID-19; Z88.6 Allergy status to analgesic agent; Z88.5 Allergy status to narcotic agent; Z79.899 Other long term (current) drug therapy
CPT/HCPCS: 36415; 49083; 71045; 74177; 80048; 80053; 80076; 81001; 82077; 83605; 83690; 83735; 83880; 85025; 85027; 85610; 85730; 87040; 87071; 87073; 87086; 87205; 87635; 89051; 93005; 96365; 96366; 96375; 96376; 99285; J0696; J1170; J1940; J2270; J2405; J2543; J2560; P9047; Q9967